=== PATIENT | female | born 1980 | race Asian ===

== ENCOUNTER 2018-03-02 07:26 | Day surgery (SDC) | payer BC, MEDICAID ==
--- NOTE | 2018-02-26 21:20 | HP ---
PREOPERATIVE HISTORY AND PHYSICAL: DATE OF SURGERY/ADMISSION: 03/02/18 [facility] ATTENDING SURGEON: Fransisca Wheeler MD * (DICTATED BY SALINA WHITE) PROCEDURE: Left wrist carpal tunnel release. CHIEF COMPLAINT: Numbness and tingling, left hand. HISTORY OF PRESENT ILLNESS: This is a 37-year-old [place] woman, who complains of numbness and tingling in her left hand that has been ongoing for over a year now. She gets symptoms at night that awaken her and she is having trouble holding on to things. She has numbness and tingling in her hand primarily in the median nerve distribution, occasionally in the small finger. She denies any injury. She often times has symptoms when she is working at [employer]. 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 She, back in August 2017, had a right carpal tunnel release and has done quite well with that. She is now interested in pursuing the same procedure for her left wrist. PAST MEDICAL HISTORY: 1. Vertigo. 2. Depression/anxiety. 3. Insomnia. 4. Lumbar disk disease. PAST SURGICAL HISTORY: 1. Right carpal tunnel release. 2. Tubal ligation. CURRENT MEDICATIONS: 1. Ambien 5 mg daily. 2. Escitalopram oxalate 20 mg daily. 3. Hydroxyzine HCl 25 mg daily. 4. Meclizine HCl 12.5 mg 1 tab 2 times a day p.r.n. dizziness. 5. MiraLAX 3350 NF mix 1 tablespoon in 8 ounces of water p.r.n. constipation. ALLERGIES: TRAZODONE, CYMBALTA and TRAMADOL, reaction unknown. BANDAGE ADHESIVES causes skin irritation. FAMILY HISTORY: Noncontributory. SOCIAL HISTORY: The patient is employed by [employer]. She denies tobacco use and recreational drug use. She drinks alcohol on very rare occasion. REVIEW OF SYSTEMS: General: Negative for fevers, chills, or night sweats, unexplained weight loss/gain. No known anesthesia problems. HEENT: Negative for headache, lightheadedness, or syncopal episodes. Negative for visual changes. Integumentary: Negative for abrasions, lesions, or open wounds. Cardiothoracic: Negative for hypertension, chest pain, palpitations, or edema. Respiratory: Negative for shortness of breath with exertion, chronic cough, or wheezing. GI: Negative for nausea, vomiting, diarrhea, constipation, or GERD. : Negative for nocturia, urinary frequency, urgency, history of UTIs, or kidney problems. Musculoskeletal: Positive for current complaint. Negative for chronic or intermittent back pain or history of fractures. Neurological: Positive for anxiety/depression. Negative for history of seizure, stroke, or poor balance. Endocrine: Negative for diabetes and thyroid issues. Hematologic : Negative for easy bruising, anemia, bleeding disorders, or history of DVT. Infectious Disease: Negative for history of MRSA, hepatitis C, or HIV. PHYSICAL EXAMINATION GENERAL: Well-developed, well-nourished 37-year-old female, in no acute distress. VITAL SIGNS: Height 5 feet 3 inches, weight 150 pounds. Pulse rate 67, blood pressure 104/66. HEENT: Normocephalic, atraumatic. Pupils are equal, round, and reactive to light and accommodation. Extraocular movements are intact. NECK: Supple. No palpable lymph nodes. Throat is clear. PULMONARY: Lungs are clear to auscultation bilaterally. No wheezes, rales, or rhonchi. CARDIOVASCULAR: Regular rate and rhythm. S1, S2. No murmurs, rubs, or gallops. No edema. ABDOMEN: Positive bowel sounds. Soft, nontender. MUSCULOSKELETAL: On exam of her left upper extremity, there is no thenar or hypothenar wasting. She has weakness with thumb abduction. Negative Tinel's sign over the median nerve at the wrist on the left. Positive Phalen's test on the left. She has good motion of her fingers and her wrist. Sensation is intact to light touch. NEUROLOGICAL: Alert and oriented x3. Cranial nerves II through XII are intact. Sensation is intact to light touch. IMPRESSION: Left carpal tunnel syndrome. PLAN: The patient is scheduled to undergo a left wrist carpal tunnel release with Dr. Wheeler on 03/02/18. She will return to the office 10 days postop for followup and suture removal. Pain medications for postoperative pain management will be prescribed on the day of surgery. SALINA WHITE [id number]/[facility] #: [id number] [facility]
[~2018-03-02 07:26] MED LIST: Buffered Lidocaine 0.9% SYRIN* 5 ML/SYR SYRINGE INTRADERM ONE
[2018-03-02] MEDS ORDERED: Propofol* 10 MG/ML 20 ML BTL IV PUSH ONE (07:45)
[2018-03-02] MEDS ORDERED: Lidocaine 2% PF * 5 ML VIAL ONE (07:45)
[2018-03-02] MEDS ORDERED: fentaNYL* 50 MCG/ML 2 ML VIAL (100 MCG VIAL) ONE (07:45)
[2018-03-02] MEDS ORDERED: Lidocaine 1% INJ* 10 MG/ML 30 ML SDV ONE (08:26)
[2018-03-02 09:09] VITALS: BP 97/67
[2018-03-02] MEDS ORDERED: Naloxone* 0.4 MG/ML 1 ML VIAL IV PRN (09:11)
--- NOTE | 2018-03-03 03:46 | OP ---
DATE OF OPERATION: 03/02/18 [facility] DATE OF : 76 SURGEON: Fransisca Wheeler MD [employer] TEACHER: SALINA Silva ANESTHESIA: Local MAC. PRE-OP DIAGNOSIS: Left carpal tunnel syndrome. POST-OP DIAGNOSIS: Left carpal tunnel syndrome. OPERATIVE PROCEDURE: Left carpal tunnel release. ESTIMATED BLOOD LOSS: Zero. TOURNIQUET TIME: About 5 minutes. INDICATIONS FOR PROCEDURE: Tamiko is a 37-year-old female with numbness and tingling in the median nerve distribution of her left hand. She presents for left carpal tunnel release. She has done well in the past with right carpal tunnel release. DESCRIPTION OF PROCEDURE: The patient was brought to the operating room, was given a sedation anesthetic and a local infiltration of 10 cc of 1% plain lidocaine in the palm of her left hand. The skin of her left hand and forearm was prepped and draped in the usual sterile fashion. The hand and forearm were exsanguinated, and the tourniquet elevated to 250 mmHg. A longitudinal incision was made in the palm in line with the ring finger, dissected through the subcutaneous tissue down to the transverse carpal ligament. The ligament was divided sharply with the knife and then more proximally with the scissors. The nerve was dissected free from the surrounding tissue and there was an area of moderate compression at the mid portion of the ligament. The wound was irrigated and the skin edges reapproximated with 4-0 nylon suture. The wound was dressed with Xeroform, 4x4, Webril, and an José Manuel wrap. The patient tolerated the procedure well and was brought to the recovery room in good condition. [id number]/[facility] #: [id number] MTDD
== END 2018-03-02 09:20 | disposition home or self-care (01) ==
LOC: OREAST 07:26
PROVIDERS: ATTEND Orthopaedic Surgery
DX: G56.02 Carpal tunnel syndrome, left upper limb (principal); F41.8 Other specified anxiety disorders; M19.90 Unspecified osteoarthritis, unspecified site
CPT/HCPCS: J2704; J3010

== ENCOUNTER 2018-08-27 11:57 | Emergency (ER) | payer BC ==
--- OUTSIDE RECORDS SUMMARY | 2018-08-27 12:09 | XMS REPORT ---
:1980 External Reference #:[id number] Author Organization [employer] Address [address] [facility] [address] [place] [address] [place] [address] Phone [phone] Care Team Providers Name Role Phone Tegan Tejada MD Primary Care Physician Unavailable Payers Type Date Identification Numbers Payment Provider Subscriber Commercial Policy Number: [id number] [employer] Tamiko Driver PayID: [id number] [address] [address] [place] [address] [facility] Part B Policy Number: [id number] Medicaid Tamiko Driver PayID: [id number] [address] [place] [address] Problems Date Description Provider Status Onset: 12/25/2012 Anxiety state Don Dhillon M.D. Active Onset: 09/10/2013 Disorder of lumbar disc Don Dhillon M.D. Active Onset: Depressive disorder Active Onset: 12/01/2015 Psychophysiologic insomnia Tegan Tejada M.D. Active Onset: 06/06/2016 Localized, primary osteoarthritis Alpa Young M.D. Active Onset: 06/06/2016 Derangement of knee Alpa Young M.D. Active Onset: 08/01/2016 Disorder of lipid metabolism Tegan Tejada M.D. Active Note: low HDL Onset: Disorder of patellofemoral joint Active Note: OA Onset: 09/06/2017 Deep pain on intercourse Tegan Tejada M.D. Active Note: chronic issue Onset: 08/22/2011 Disorder of lung Don Dhillon M.D. Resolved Resolved: 03/03/2014 Onset: 03/28/2012 Dizziness and giddiness Don Dhillon M.D. Resolved Resolved: 03/03/2014 Onset: 04/11/2012 Hodgkin's disease, nodular Don Dhillon M.D. Resolved sclerosis of lymph nodes of axilla AND/OR upper limb Resolved: 03/03/2014 Onset: 07/25/2012 Low back pain Don Dhillon M.D. Resolved Resolved: 03/03/2014 Onset: 07/25/2012 Headache Don Dhillon M.D. Resolved Resolved: 03/03/2014 Onset: 08/21/2012 Palpitations Don Dhillon M.D. Resolved Resolved: 03/03/2014 Onset: 12/25/2012 Benign paroxysmal positional Don Dhillon M.D. Resolved vertigo Resolved: 03/03/2014 Onset: 12/25/2012 Impairment level: one eye: moderate Don Dhillon M.D. Resolved impairment: other eye: near-normal vision Resolved: 03/03/2014 Onset: 06/26/2013 Mixed hyperlipidemia Don Dhillon M.D. Resolved Resolved: 03/03/2014 Onset: 06/26/2013 Disorder of back Don Dhillon M.D. Resolved Resolved: 03/03/2014 Onset: 06/26/2013 Chest pain Don Dhillon M.D. Resolved Resolved: 03/03/2014 Onset: 07/31/2013 Peripheral vertigo Don Dhillon M.D. Resolved Resolved: 03/03/2014 Onset: 07/31/2013 Female genital organ symptoms Don Dhillon M.D. Resolved Resolved: 03/03/2014 Onset: 09/10/2013 Lymphadenopathy Don Dhillon M.D. Resolved Resolved: 03/03/2014 Family History Date Family Member(s) Problem(s) Comments General Hypertension Father per pt, father had skin disease from [place], has Mother Alive And Well Mother No Current Problems Siblings 3 Social History Type Date Description Comments Marital Status Lives With Occupation Currently Working [employer] Cigarette Use Never Smoked Cigarettes ETOH Use Denies alcohol use Recreational Drug Use Denies Drug Use Smoking Patient has never smoked Daily Caffeine Does Not Consume Caffeine Daily Caffeine Consumes on average 2 cups of hot tea per day Exercise Type/Frequency Exercises regularly back stretches .some walking X 30 min periodically Allergies, Adverse Reactions, Alerts Date Description Reaction Status Severity Comments 12/12/2013 Cymbalta abdominal pain active 12/12/2013 Bandage Adhesive active 01/02/2014 Tramadol makes patient active lethargic 01/29/2014 Trazodone Eye balls were active Moderate to Severe burning 05/31/2011 NKDA inactive 09/10/2013 NKDA inactive Medications Medication Date Status Form Strength Qnty SIG Indications Ordering Provider Miralax 09/06/ Active Powder 3350NF 510un mix 1 K59.00 Tegan 2017 its tablespoon in [place], 8 oz of water M.D. as needed for constipation Wrist 02/01/ Active Misc 1unit as needed G56.01 Tegan Brace/Suede 2017 s [place], Finish/Right/Me M.D. dium Hydroxyzine HCL 10/03/ Active Tablets 25mg 30tab 1 tab by F41.9 Tegan 2016 s mouth every [place]jada, night as M.D. needed for anxiety Escitalopram 10/03/ Active Tablets 20mg 90tab take one F32.9 Tegan Oxalate 2015 s tablet by Tejada, mouth every M.D. day Ambien 10/07/ Active Tablets 5mg 30tab 1 by mouth G47.00 Tegan 2015 s every day as Tejada, needed before M.D. sleep Meclizine HCL 07/30/ Active Tablets 12.5mg 60tab 1 tab 2 times F32.9 Dex Reinoso 2015 s a day as Chantel, needed for M.D. dizziness Acetaminophen-C 08/25/ Hx Tablets 300-30mg 30tab 1-2 tabs by Maurice vance #3 2017 - s mouth every 6 Robison, 05/20/ hours as 2018 needed Meloxicam 06/06/ Hx Tablets 15mg 60tab 1 by mouth M25.562 Alpa 2016 - s every day Hector, 10/18/ (not taking) M.D. 2016 Escitalopram 01/10/ Hx Tablets 10mg 90tab 1 by mouth F32.9 Tegan Oxalate 2015 - s every day Tejada, 10/03/ M.D. 2016 Meclizine HCL 12/27/ Hx Tablets 25mg 90tab 1 by mouth 3 F32.9 Tegan 2016 - s times a day Tejada, 10/18/ as needed for M.D. 2016 dizziness Fluconazole 12/01/ Hx Tablets 150mg 2tabs 1 by mouth B37.3 Tegan 2016 - every day Tejada, 12/27/ M.D. 2016 Escitalopram 12/01/ Hx Tablets 20mg 90tab take 10/24 F32.9 Tegan Oxalate 2015 - s tablet by Terrell, 01/10/ mouth every M.D. 2016 day Fluconazole 10/29/ Hx Tablets 150mg 2tabs 1 by mouth Tegan 2016 - every day Tejada, M.D. 2016 Fluconazole 04/07/ Hx Tablets 150mg 2tabs 1 by mouth Tegan 2014 - every day Tejada, 04/27/ M.D. 2015 Escitalopram 04/06/ Hx Tablets 10mg 90tab 1 by mouth F32.9 Tegan Oxalate 2014 - s every day. . Tejada, 12/01/ M.D. 2016 Amitriptyline 04/06/ Hx Tablets 10mg 30tab 1 tablet by 724.2 Tegan HCL 2014 - mouth at Tejada, 04/27/ night only M.D. 2014 Meclizine HCL 01/26/ Hx Tablets 12.5mg 30tab 1 tab by 386.11 Elia 2014 - s mouth twice a Patel, CHARGE AUTHORIZER 07/30/ day as needed 2014 dizziness. Hydrocodone-José Manuel 01/26/ Hx Tablets 5-325mg 45tab 1-2 tabs by 724.2 Elia taminophen 2014 - s mouth q6 Patel, CHARGE AUTHORIZER 04/06/ hours as 2015 needed pain limit 6 tabs per day Zolpidem 11/26/ Hx Tablets 5mg 30tab 1 tab by 780.52 Elia Tartrate 2014 - s mouth at Patel, CHARGE AUTHORIZER 04/07/ night as 2015 needed Escitalopram 10/27/ Hx Tablets 10mg 30tab 1 by mouth 311 Elia Irwin 2014 - s every day. MARIAN Patel 04/06/ Start with 2014 1/4 tab x 5 days. Then 1/2 tab x 5 days. Then 3/4 tab x 5 days. Then whole tab. Eszopiclone 10/14/ Hx Tablets 1mg 30tab 1 tab by 780.52 Suzan 2013 - s mouth every Verenice, 10/24/ day every MD 2015 night Ondansetron HCL 10/13/ Hx Tablets 4mg 20tab Take One Aliya 2013 - Tablet By Shahid 04/06/ Mouth Every 8 M.D. 2015 Hours as Needed For For Nausea Fluconazole 09/11/ Hx Tablets 150mg 1tabs 1 tab by 616.10 Elia 2013 - mouth x1 MARIAN Patel 2014 Colace 09/11/ Hx Capsules 100mg 90cap 1 tab by 564.00 Elia 2013 - s mouth at MARIAN Patel 12/01/ bedtime 2015 Fluconazole 09/05/ Hx Tablets 150mg 1tabs 1 tab by Elia 2013 - mouth x1 MARIAN Patel 2013 Clindamycin HCL 09/04/ Hx Capsules 300mg 14cap take 1 by 616.9 Elia 2013 - s mouth two MARIAN Patel 09/05/ times a day x 2013 7 days Fluconazole 07/10/ Hx Tablets 150mg 2tabs 1 by mouth 623.5 Tegan 2013 - every day Terrell, 09/11/ M.D. 2013 Fluconazole 03/05/ Hx Tablets 150mg 2tabs 1 by mouth Tegan 2013 - every day Terrell, 07/10/ M.D. 2013 Metrogel-Vagina 03/05/ Hx Gel 0.75% 1unit apply once a Tegan l 2013 day x 7 days Terrell, 07/10/ M.D. 2013 Fluoxetine HCL 01/29/ Hx Tablets 20mg 90tab take 1 tab 311 Tegan 2013 - s daily Dr. Tejada, 10/24/ Janet Gomez 2014 Melatonin CR 01/02/ Hx Tablets 3mg 30tab once at hs 2 Tegan 2013 - ER s hrs prior to Terrell 12/01/ sleep M.Bee 2016 Lorazepam 12/30/ Hx Tablets 0.5mg 10tab 1 tablet as Tegan 2013 needed for Terrell, 09/04/ anxiety M.D. [address] Gonzales Fluoxetine HCL 12/23/ Hx Tablets 10mg 90tab once a day(Pt 311 Tegan 2013 was changed Terrell from 10 to M.D. 2013 20mg by psychiatrist. ) Ondansetron HCL 12/12/ Hx Tablets 4mg 20tab 1 tab po 780.79 Aliya 2013 Jacek s every 8 hours Shahid 01/02/ for nausea M.D. 2013 Alprazolam 12/12/ Hx Tablets 0.25mg 20tab 1 po for 311 Aliya 2013 s anxiety Shahid, 01/29/ attack M.D. 2013 Omeprazole 12/12/ Hx Capsules 20mg 30cap 1 po qd 780.79 Aliya 2013 - DR daniel Key, M.D. 2013 Duloxetine HCL 12/04/ Hx Caps DR 30mg 90cap 1 tab daily 311 Tegan 2013 Yvonne s Terrell 12/12/ M.D. 2013 Tramadol HCL 12/04/ Hx Tablets 50mg 30tab 1 po at night 722.93 Tegan 2013 s as needed for Terrell, 01/02/ pain M.D. 2013 Meloxicam 09/10/ Hx Tablets 15mg 30tab once daily as 724.9 Tegan 2012 needed for Terrell, 10/13/ back pain M.D. 2013 Meloxicam 06/26/ Hx Tablets 15mg 30tab once daily 724.9 Don 2012 s Jacquie 09/10/ , M.D. 2013 Zoloft 12/26/ Hx Tablets 50mg 30tab 1/2 tab x 2 Aliya 2012 weeks then 1 Shahid 06/26/ tab daily M.D. 2012 Zoloft 12/25/ Hx Tablets 50mg 3week 1/2 po qd tab 300.00 Don 2012 s then 2 we 1 Pachika 12/26/ tab after , M.D. 2012 Meclizine HCL 12/05/ Hx Tablets 12.5mg 90tab 1 tab every 8 780.4 Don 2012 s hrs as needed Jacquie 09/10/ for dizziness , M.D. 2013 Mobic 08/21/ Hx Tablets 15mg 30tab once daily 724.2 Don 2011 - s with food Pachikara 12/05/ Jason 2012 Sumatriptan 07/25/ Hx Tablets 100mg 10tab use at onset 784.0 Don Succinate 2011 - of head Pachikara 08/21/ ache,february , M.D. 2011 repeat after 2h prn Levaquin 07/20/ Hx Tablets 500mg 10tab 1 po qd [address] [place] 2010 - s Pachikara Jason 2010 Mobic 07/20/ Hx Tablets 15mg 30tab once daily 724.2 [place] 2010 - s Pachikara 07/25/ , ShaggyDRadha 2011 Acetaminophen / Hx 500mg 2 tabs qam Unknown - 2011 Tylenol PM / Hx Tablets 500-25mg 30tab 1 po qhs Unknown 0000 - s 2012 Multi-Day / Hx Tablets 30tab 1 po qd Unknown Vitamins 0000 - s 2016 Ibuprofen / Hx Capsules 200mg prn Unknown - 2011 Lorazepam / Hx Tablets 0.5mg 60tab take 1 tablet Unknown 0000 - s as needed for 03/23/ anxiety every 2014 8 hours Sertraline HCL / Hx Tablets 100mg 1 by mouth Unknown 0000 - every day 04/06/ last refill 2014 per pharmacy 12/30 Medications Administered in Office Medication Date Status Form Strength Qnty SIG Indications Ordering Provider Depomedrol Administered Injection Fransisca 40MG Sravan Wheeler M.D. Depomedrol Administered Injection Fransisca 40MG Sravan Wheeler M.D. Depomedrol Administered Injection Fransisca 40MG Sravan Wheeler M.D. Depomedrol Administered Injection Alpa 40MG Deedee Young M.D. Td(Adult),Uns Administered Injection Unknown pecified 011 Immunizations CPT Code Status Date Vaccine Reaction Lot # 99931 Given 08/23/2018 Influenza Virus Vaccine, No immediate reaction [id number] Quadrivalent, Split, noted. Preservative Free 13972 Given 09/06/2017 Tdap - [id number] Tetanus/Diptheria/Acellul ar Pertussis 52245 Given 09/06/2017 Influenza Virus Vaccine, [id number] Quadrivalent, Split, Preservative Free 54731 Given 08/01/2016 Influenza Virus Vaccine, [id number] Quadrivalent, Split Virus, Im Use 08954 Given 07/30/2015 Influenza Virus Vaccine, [id number] Quadrivalent, Split, Preservative Free [id number] Given 07/10/2014 Fluvirin Im 3Yrs And Older 25078 Given 07/10/2014 Influenza Virus Vaccine, Quadrivalent, Split, Preservative Free 80959 Given 07/10/2014 Flu Vaccine Split Virus [id number] Preservative Free For Indiv 3Yr Older 91854 Given 07/31/2013 Flu Vaccine Split Virus [id number] Preservative Free For Indiv 3Yr Older 53499 Given 09/27/2012 Hepatitis A Vaccine Adult Dosage 40645 Given 05/31/2012 Hepatitis B Vaccine Adult Dosage 97834 Given 05/31/2012 Hepatitis B Vaccine Adult [id number] Dosage 73534 Given 03/29/2012 Hepatitis B Vaccine Adult [id number] Dosage 39604 Given 03/29/2012 Hepatitis A Vaccine Adult [id number] Dosage 74971 Given 03/28/2012 Pneumonia Vaccine [id number] 05546 Given 03/28/2012 Measles Mumps And Rubella [id number] MMR 99543 Given 12/03/2010 Hepatitis B Vaccine Adult Dosage 77641 Given 12/03/2010 Measles Mumps And Rubella MMR Vital Signs Date Vital Result Comment 08/23/2018 Height 63 inches 5'3" Weight 143.00 lb Heart Rate 87 /min BP Systolic Sitting 100 mmHg BP Diastolic Sitting 76 mmHg Body Temperature 98.3 F O2 % BldC Oximetry 98 % BMI (Body Mass Index) 25.3 kg/m2 04/12/2018 Height 63 inches 5'3" Weight 150.00 lb Heart Rate 84 /min Respiratory Rate 16 /min Body Temperature 96.8 F Pain Level 0 BMI (Body Mass Index) 26.6 kg/m2 03/12/2018 Height 63 inches 5'3" Weight 150.00 lb Heart Rate 67 /min Respiratory Rate 15 /min Body Temperature 97.3 F Pain Level 2 BMI (Body Mass Index) 26.6 kg/m2 02/21/2018 Height 63 inches 5'3" Weight 150.00 lb Heart Rate 67 /min Respiratory Rate 16 /min Pain Level 5 BMI (Body Mass Index) 26.6 kg/m2 02/08/2018 Height 63 inches 5'3" Weight 150.12 lb Heart Rate 73 /min BP Systolic Sitting 104 mmHg BP Diastolic Sitting 66 mmHg Body Temperature 98.2 F O2 % BldC Oximetry 98 % BMI (Body Mass Index) 26.6 kg/m2 09/27/2017 Height 63 inches 5'3" Weight 150.00 lb BP Systolic 100 mmHg BP Diastolic 62 mmHg Body Temperature 98.5 F Pain Level 0 BMI (Body Mass Index) 26.6 kg/m2 09/06/2017 Weight 148.25 lb Heart Rate 75 /min BP Systolic Sitting 90 mmHg BP Diastolic Sitting 68 mmHg Body Temperature 98.2 F O2 % BldC Oximetry 98 % 09/04/2017 Height 61 inches 5'1" Weight 150.00 lb BMI (Body Mass Index) 28.3 kg/m2 08/17/2017 Height 61 inches 5'1" Weight 150.00 lb BP Systolic 110 mmHg BP Diastolic 72 mmHg Body Temperature 97.1 F Pain Level 8 BMI (Body Mass Index) 28.3 kg/m2 05/31/2017 Height 61 inches 5'1" Weight 155.00 lb BP Systolic 101 mmHg BP Diastolic 65 mmHg Body Temperature 97.6 F Pain Level 7 BMI (Body Mass Index) 29.3 kg/m2 03/08/2017 Height 61 inches 5'1" Weight 154.00 lb BP Systolic 90 mmHg BP Diastolic 60 mmHg Body Temperature 97.8 F Pain Level 0 BMI (Body Mass Index) 29.1 kg/m2 02/13/2017 Height 61 inches 5'1" Weight 154.00 lb Heart Rate 76 /min BP Systolic 94 mmHg BP Diastolic 70 mmHg Respiratory Rate 15 /min Body Temperature 97.6 F BMI (Body Mass Index) 29.1 kg/m2 02/01/2017 Weight 154.25 lb Heart Rate 76 /min BP Systolic 110 mmHg BP Diastolic 68 mmHg Body Temperature 98.1 F O2 % BldC Oximetry 98 % 11/29/2016 Weight 157.00 lb Heart Rate 81 /min BP Systolic 100 mmHg BP Diastolic 60 mmHg Body Temperature 99.0 F O2 % BldC Oximetry 98 % 10/18/2016 Weight 157.00 lb Heart Rate 74 /min BP Systolic Sitting 124 mmHg BP Diastolic Sitting 82 mmHg Respiratory Rate 15 /min Body Temperature 97.7 F O2 % BldC Oximetry 98 % 10/03/2016 Weight 154.00 lb Heart Rate 78 /min BP Systolic Sitting 98 mmHg BP Diastolic Sitting 76 mmHg Body Temperature 97.8 F O2 % BldC Oximetry 98 % 08/01/2016 Height 62.5 inches 5'2.50" Weight 154.00 lb Heart Rate 75 /min BP Systolic Sitting 118 mmHg BP Diastolic Sitting 78 mmHg Body Temperature 97.5 F O2 % BldC Oximetry 98 % BMI (Body Mass Index) 27.7 kg/m2 07/25/2016 Heart Rate 73 /min BP Systolic 93 mmHg BP Diastolic 69 mmHg Pain Level 9 06/06/2016 Height 62.5 inches 5'2.50" Weight 154.00 lb Heart Rate 60 /min BP Systolic Sitting 94 mmHg BP Diastolic Sitting 60 mmHg Respiratory Rate 16 /min Pain Level 9 BMI (Body Mass Index) 27.7 kg/m2 05/16/2016 Height 62.5 inches 5'2.50" Weight 152.50 lb Heart Rate 97 /min BP Systolic 90 mmHg BP Diastolic 70 mmHg Body Temperature 97.1 F O2 % BldC Oximetry 99 % BMI (Body Mass Index) 27.4 kg/m2 01/11/2016 Height 62.5 inches 5'2.50" Weight 154.00 lb Heart Rate 78 /min BP Systolic 98 mmHg BP Diastolic 70 mmHg Body Temperature 97.6 F O2 % BldC Oximetry 99 % BMI (Body Mass Index) 27.7 kg/m2 12/28/2015 Height 62.5 inches 5'2.50" Weight 152.00 lb Heart Rate 77 /min BP Systolic 100 mmHg BP Diastolic 72 mmHg Body Temperature 98.3 F O2 % BldC Oximetry 100 % BMI (Body Mass Index) 27.4 kg/m2 12/01/2015 Height 62.5 inches 5'2.50" Weight 151.75 lb Heart Rate 87 /min BP Systolic Sitting 90 mmHg BP Diastolic Sitting 60 mmHg Body Temperature 98.4 F O2 % BldC Oximetry 98 % BMI (Body Mass Index) 27.3 kg/m2 10/28/2015 Weight 149.50 lb Heart Rate 106 /min BP Systolic Sitting 102 mmHg BP Diastolic Sitting 60 mmHg Body Temperature 97.4 F O2 % BldC Oximetry 98 % 10/07/2015 Weight 149.00 lb Heart Rate 82 /min BP Systolic Sitting 122 mmHg BP Diastolic Sitting 74 mmHg Respiratory Rate 15 /min Body Temperature 98.4 F O2 % BldC Oximetry 98 % 07/30/2015 Weight 149.00 lb Heart Rate 84 /min BP Systolic Sitting 94 mmHg BP Diastolic Sitting 62 mmHg Body Temperature 97.5 F 04/30/2015 Height 63 inches 5'3" Weight 148.00 lb Heart Rate 74 /min BP Systolic Sitting 100 mmHg BP Diastolic Sitting 60 mmHg Respiratory Rate 14 /min O2 % BldC Oximetry 98 % BMI (Body Mass Index) 26.2 kg/m2 04/29/2015 Weight 147.00 lb Heart Rate 80 /min BP Systolic Sitting 101 mmHg BP Diastolic Sitting 62 mmHg Body Temperature 98.6 F 04/27/2015 Height 63 inches 5'3" Weight 145.00 lb Heart Rate 80 /min BP Systolic Sitting 92 mmHg BP Diastolic Sitting 64 mmHg Body Temperature 98.9 F O2 % BldC Oximetry 99 % BMI (Body Mass Index) 25.7 kg/m2 04/06/2015 Weight 146.50 lb Heart Rate 77 /min BP Systolic Sitting 103 mmHg BP Diastolic Sitting 75 mmHg Body Temperature 97.8 F 01/26/2015 Weight 151.00 lb Heart Rate 87 /min BP Systolic Sitting 90 mmHg BP Diastolic Sitting 70 mmHg Body Temperature 97.5 F O2 % BldC Oximetry 98 % 11/26/2014 Weight 148.50 lb Heart Rate 91 /min BP Systolic Sitting 104 mmHg BP Diastolic Sitting 70 mmHg Body Temperature 97.8 F O2 % BldC Oximetry 99 % 10/27/2014 Weight 148.75 lb Heart Rate 87 /min BP Systolic Sitting 97 mmHg BP Diastolic Sitting 65 mmHg Body Temperature 98.0 F O2 % BldC Oximetry 99 % 10/14/2014 Height 63 inches 5'3" Weight 148.00 lb Heart Rate 88 /min BP Systolic Sitting 82 mmHg BP Diastolic Sitting 56 mmHg Body Temperature 98.4 F BMI (Body Mass Index) 26.2 kg/m2 10/14/2014 Height 63 inches 5'3" Weight 146.50 lb Heart Rate 75 /min BP Systolic Sitting 122 mmHg BP Diastolic Sitting 60 mmHg Respiratory Rate 16 /min Body Temperature 97.6 F O2 % BldC Oximetry 99 % BMI (Body Mass Index) 25.9 kg/m2 Neck Circumference in inches 15 09/11/2014 Weight 147.00 lb Heart Rate 84 /min BP Systolic Sitting 84 mmHg BP Diastolic Sitting 62 mmHg Body Temperature 96.7 F 09/04/2014 Weight 147.50 lb Heart Rate 84 /min BP Systolic Sitting 90 mmHg BP Diastolic Sitting 66 mmHg Body Temperature 98.6 F 07/10/2014 Weight 143.00 lb Heart Rate 80 /min BP Systolic Sitting 110 mmHg BP Diastolic Sitting 64 mmHg Body Temperature 98.7 F 03/03/2014 Height 62 inches 5'2" Weight 136.00 lb Heart Rate 82 /min BP Systolic Sitting 110 mmHg BP Diastolic Sitting 62 mmHg BMI (Body Mass Index) 24.9 kg/m2 01/29/2014 Height 62 inches 5'2" Weight 136.00 lb Heart Rate 64 /min BP Systolic Sitting 106 mmHg BP Diastolic Sitting 76 mmHg Body Temperature 98.6 F BMI (Body Mass Index) 24.9 kg/m2 01/02/2014 Height 62 inches 5'2" Weight 133.00 lb Heart Rate 72 /min BP Systolic Sitting 98 mmHg BP Diastolic Sitting 64 mmHg Body Temperature 98.2 F BMI (Body Mass Index) 24.3 kg/m2 12/23/2013 Weight 140.00 lb Heart Rate 83 /min BP Systolic Sitting 102 mmHg BP Diastolic Sitting 76 mmHg Body Temperature 97.9 F 12/12/2013 Weight 135.00 lb Heart Rate 123 /min BP Systolic Sitting 96 mmHg BP Diastolic Sitting 72 mmHg Body Temperature 98.8 F O2 % BldC Oximetry 98 % 12/04/2013 Weight 142.00 lb Heart Rate 78 /min BP Systolic Sitting 105 mmHg BP Diastolic Sitting 68 mmHg 11/07/2013 Weight 142.00 lb Heart Rate 80 /min BP Systolic Sitting 100 mmHg BP Diastolic Sitting 70 mmHg 09/10/2013 Height 62 inches 5'2" Weight 140.00 lb Heart Rate 78 /min BP Systolic Sitting 102 mmHg BP Diastolic Sitting 64 mmHg BMI (Body Mass Index) 25.6 kg/m2 07/31/2013 Height 62 inches 5'2" Weight 141.00 lb Heart Rate 76 /min BP Systolic Sitting 92 mmHg BP Diastolic Sitting 68 mmHg BMI (Body Mass Index) 25.8 kg/m2 06/26/2013 Height 62 inches 5'2" Weight 136.00 lb Heart Rate 75 /min BP Systolic Sitting 98 mmHg BP Diastolic Sitting 71 mmHg Body Temperature 97.5 F BMI (Body Mass Index) 24.9 kg/m2 01/15/2013 Height 62 inches 5'2" Weight 132.00 lb Heart Rate 68 /min BP Systolic 90 mmHg BP Diastolic 70 mmHg BMI (Body Mass Index) 24.1 kg/m2 12/25/2012 Height 62 inches 5'2" Weight 128.00 lb Heart Rate 60 /min BP Systolic Sitting 94 mmHg BP Diastolic Sitting 70 mmHg BMI (Body Mass Index) 23.4 kg/m2 12/05/2012 Height 62 inches 5'2" Weight 129.25 lb Heart Rate 78 /min BP Systolic 107 mmHg BP Diastolic 82 mmHg BP Systolic Sitting 82 mmHg 1st time BP Diastolic Sitting 56 mmHg 1st time BP Systolic Standing 106 mmHg BP Diastolic Standing 75 mmHg BP Systolic Lying Down 103 mmHg BP Diastolic Lying Down 73 mmHg BMI (Body Mass Index) 23.6 kg/m2 08/21/2012 Height 62 inches 5'2" Weight 133.00 lb Heart Rate 76 /min BP Systolic Sitting 98 mmHg BP Diastolic Sitting 64 mmHg BMI (Body Mass Index) 24.3 kg/m2 07/25/2012 Height 62 inches 5'2" Weight 128.00 lb Heart Rate 80 /min BP Systolic Sitting 98 mmHg BP Diastolic Sitting 70 mmHg BMI (Body Mass Index) 23.4 kg/m2 04/11/2012 Height 62 inches 5'2" Weight 129.00 lb Heart Rate 68 /min BP Systolic Sitting 98 mmHg BP Diastolic Sitting 60 mmHg BMI (Body Mass Index) 23.6 kg/m2 03/28/2012 Height 62 inches 5'2" Weight 130.00 lb Heart Rate 56 /min BP Systolic Sitting 94 mmHg BP Diastolic Sitting 72 mmHg BMI (Body Mass Index) 23.8 kg/m2 08/22/2011 Height 62 inches 5'2" Weight 131.00 lb Heart Rate 64 /min BP Systolic Sitting 102 mmHg l BP Diastolic Sitting 60 mmHg l Body Temperature 99.5 F BMI (Body Mass Index) 24.0 kg/m2 07/20/2011 Height 62 inches 5'2" Weight 128.00 lb Heart Rate 72 /min BP Systolic Sitting 110 mmHg BP Diastolic Sitting 75 mmHg BMI (Body Mass Index) 23.4 kg/m2 05/31/2011 Weight 123.00 lb Heart Rate 78 /min BP Systolic Sitting 96 mmHg BP Diastolic Sitting 80 mmHg Results Test Date Test Result H/L Range Note Laboratory test 08/23/2018 (HCG) <pending> finding Urine Laboratory test 10/03/2016 TSH (Thyroid Stim 1.58 mcIU/mL 0.34-5.60 finding Horm) Potassium 4.2 mmol/L 3.5-5.0 CBC Auto Diff 09/16/2016 White Blood Count 8.6 10^3/uL 3.5-10.8 Red Blood Count 4.93 10^6/uL 4.0-5.4 Hemoglobin 13.1 g/dL 12.0-16.0 Hematocrit 39 % 35-47 Mean Corpuscular Volume 79 fL Low 80-97 Mean Corpuscular Hemoglobin 27 pg 27-31 Mean Corpuscular HGB Conc 34 g/dL 31-36 Red Cell Distribution Width 14 % 10.5-15 Platelet Count 196 10^3/uL 150-450 Mean Platelet Volume 9 um3 7.4-10.4 Abs Neutrophils 4.8 10^3/uL 1.5-7.7 Abs Lymphocytes 2.8 10^3/uL 1.0-4.8 Abs Monocytes 0.7 10^3/uL 0-0.8 Abs Eosinophils 0.1 10^3/uL 0-0.6 Abs Basophils 0.1 10^3/uL 0-0.2 Abs Nucleated RBC 0.02 10^3/uL Granulocyte % 56.3 % 38-83 Lymphocyte % 33.1 % 25-47 Monocyte % 7.9 % 1-9 Eosinophil % 1.7 % 0-6 Basophil % 1.0 % 0-2 Nucleated Red Blood Cells % 0.2 Comp Metabolic Panel 09/16/2016 Sodium 136 mmol/L 133-145 Potassium 3.2 mmol/L Low 3.5-5.0 Chloride 103 mmol/L 101-111 Co2 Carbon Dioxide 21 mmol/L Low 22-32 Anion Gap 12 mmol/L High 2-11 Glucose 113 mg/dL High 70-100 Blood Urea Nitrogen 11 mg/dL 6-24 Creatinine 0.76 mg/dL 0.51-0.95 BUN/Creatinine Ratio 14.5 8-20 Calcium 9.6 mg/dL 8.6-10.3 Total Protein 7.6 g/dL 6.4-8.9 Albumin 4.2 g/dL 3.2-5.2 Globulin 3.4 g/dL 2-4 Albumin/Globulin Ratio 1.2 1-3 Total Bilirubin 1.00 mg/dL 0.2-1.0 Alkaline Phosphatase 53 U/L 34-104 Alt 17 U/L 7-52 Ast 19 U/L 13-39 Egfr Non- 85.2 >60 Egfr 109.5 >60 1 Laboratory test finding 09/16/2016 Magnesium 1.8 mg/dL Low 1.9-2.7 Lipase 26 U/L 11.0-82.0 C Reactive Protein 2.25 mg/L < 5.00 2 HCG < 0.60 mIU/mL 3 Laboratory test finding 08/01/2016 Cytology SEE RESULT BELOW 4 HPV Rna Ww/Reflex Genotype Negative Negative 5 Lipid Profile (Trig/Chol/HDL) 07/26/2016 Triglycerides 179 mg/dL 6 Cholesterol 168 mg/dL 7 HDL Cholesterol 43.8 mg/dL 8 LDL Cholesterol 88 mg/dL 9 Laboratory test 07/26/2016 Glucose 83 mg/dL 70-100 10 finding Laboratory test 10/28/2015 [place]/Yeast: SEE RESULT BELOW 11 finding Vaginal Dna GC/Chlamydia 10/28/2015 Chlamydia trachomatis Negative Negative Amplified Rna Rna Neisseria gonorrhoeae (GC) Rna Negative Negative Laboratory test 10/28/2015 Trichomonas Vaginalis Negative Negative 12 finding Rna Laboratory test 10/07/2015 Test Urine negative finding Laboratory test 04/06/2015 [place]/Yeast: SEE RESULT BELOW 13 finding Vaginal Dna Ua Routine 04/06/2015 Ua Specific [place] 1.010 Ua PH 5 Ua Color yellow Ua Appera cloudy Ua WBC moderate Ua Protein negative Ua Glucose negative Ua Ketones negative Ua Bilirubin negative Ua Urobilinogen normal Ua Nitrite negative Ua Occult Blood NHT Cortisol Free 24HR Urine 11/03/2014 Urine Free Cortisol 10 mcg/24h 3.5- 45 Urine Collection Duration 24 h Urine Total Volume 1600 mL 14 Laboratory test finding 11/03/2014 Acth 34 pg/mL 15 Vitamin D 1,25 And Vitamin 11/03/2014 Vitamin D 1,25-Dihydroxy 39 pg/mL 18-78 16 D,2 Vitamin D, 25 Hydroxy 11/03/2014 25-Hydroxy Vitamin D2 <4.0 ng/mL 25-Hydroxy Vitamin D3 31 ng/mL 25-Hydroxy Vitamin D Total 31 ng/mL 17 Laboratory test finding 10/15/2014 Hemoglobin A1c 4.5 % Less than 6.0 18 Comp Metabolic Panel 10/15/2014 Sodium 136 mmol/L 133-145 Potassium 3.9 mmol/L 3.5-5.0 Chloride 105 mmol/L 101-111 Co2 Carbon Dioxide 25 mmol/L 22-32 Anion Gap 6 mmol/L 2-11 Glucose 86 mg/dL 70-100 Blood Urea Nitrogen 10 mg/dL 6-24 Creatinine 0.58 mg/dL 0.51-0.95 BUN/Creatinine Ratio 17.2 8-20 Calcium 9.4 mg/dL 8.6-10.3 Total Protein 7.0 g/dL 6.4-8.9 Albumin 4.3 g/dL 3.2-5.2 Globulin 2.7 g/dL 2-4 Albumin/Globulin Ratio 1.6 1-3 Total Bilirubin 1.00 mg/dL 0.2-1.0 Alkaline Phosphatase 50 U/L 34-104 Alt 18 U/L 7-52 Ast 20 U/L 13-39 Egfr Non- 117.6 >60 Egfr 151.3 >60 19 Laboratory test finding 10/15/2014 Magnesium 1.8 mg/dL Low 1.9-2.7 Laboratory test finding 09/04/2014 Gardnerella/Yeast: (SEE NOTE) 20 Vaginal Dna CBC Auto Diff 07/14/2014 White Blood Count 5.4 10^3/uL 4.8-10.8 21 Red Blood Count 4.45 10^6/uL 4.0-5.4 21 Hemoglobin 13.2 g/dL 12.0-16.0 21 Hematocrit 38 % 35-47 21 Mean Corpuscular Volume 85 fL 80-97 21 Mean Corpuscular Hemoglobin 30 pg 27-31 21 Mean Corpuscular HGB Conc 35 g/dL 31-36 21 Red Cell Distribution Width 13 % 10.5-15 21 Platelet Count 173 10^3/uL 150-450 21 Mean Platelet Volume 9 um3 7.4-10.4 21 Abs Neutrophils 3.3 10^3/uL 1.5-7.7 21 Abs Lymphocytes 1.5 10^3/uL 1.0-4.8 21 Abs Monocytes 0.4 10^3/uL 0-0.8 21 Abs Eosinophils 0.2 10^3/uL 0-0.6 21 Abs Basophils 0 10^3/uL 0-0.2 21 Abs Nucleated RBC 0 10^3/uL 21 Granulocyte % 61.6 % 38-83 21 Lymphocyte % 27.5 % 25-47 21 Monocyte % 6.6 % 1-9 21 Eosinophil % 3.6 % 0-6 21 Basophil % 0.7 % 0-2 21 Nucleated Red Blood Cells % 0.1 21 Laboratory test 07/14/2014 TSH (Thyroid 1.69 IU/mL 0.34-5.60 21, 22 finding Stimulating Horm) Glucose 80 mg/dL 70-100 21, 23 Laboratory test finding 07/10/2014 Affirm Vaginal Dna Probe (SEE NOTE) 24 HPV High Risk 03/03/2014 Human Papillomavirus Source See Comment 25 HPV High Risk Type 16, PCR Negative Negative HPV High Risk Type 18, PCR Negative Negative HPV Other Risk types Negative Negative 26 GC/Chlamydia Amplified Rna 03/03/2014 GC/Chlamydia Rna (SEE NOTE) 27 Laboratory test finding 03/03/2014 Cytology RUN DATE: 03/04/ <SEE 28 NOTE> Affirm Vaginal Dna Probe (SEE NOTE) 29 Comp Metabolic Panel 12/28/2013 Sodium 137 mmol/L 133-145 Potassium 3.7 mmol/L 3.7-5.6 Chloride 106 mmol/L 101-111 Co2 Carbon Dioxide 20 mmol/L Low 22-32 Anion Gap 11 mmol/L 2-11 Glucose 109 mg/dL High 70-100 Blood Urea Nitrogen 11 mg/dL 6-24 Creatinine 0.66 mg/dL 0.51-0.95 BUN/Creatinine Ratio 16.7 8-20 Calcium 9.8 mg/dL 8.6-10.3 Total Protein 7.5 g/dL 6.4-8.9 Albumin 4.6 g/dL 3.2-5.2 Globulin 2.9 g/dL 2-4 Albumin/Globulin Ratio 1.6 1-3 Total Bilirubin 1.20 mg/dL High 0.2-1.0 Alkaline Phosphatase 58 U/L 34-104 Alt 16 U/L 7-52 Ast 18 U/L 13-39 Egfr Non- 101.9 >60 Egfr 131.1 >60 30 CKMB 12/28/2013 CKMB ng/mL 0.7 ng/mL 0.6-6.3 Laboratory test finding 12/28/2013 Troponin I 0.00 ng/mL <0.03 31 TSH (Thyroid Stimulating Horm) 1.50 IU/mL 0.34-5.60 Acetaminophen < 15 g/mL 32 Salicylate < 2.50 mg/dL <30 Laboratory test 12/28/2013 D Dimer Quantitative < 200 ng/mL Less Than 230 33 finding Inr/Protime 12/28/2013 Inr 0.96 0.85-1.06 CBC Auto Diff 12/28/2013 White Blood Count 7.8 10^3/uL 4.8-10.8 Red Blood Count 4.52 10^6/uL 4.0-5.4 Hemoglobin 12.9 g/dL 12.0-16.0 Hematocrit 38 % 35-47 Mean Corpuscular Volume 83 fL 80-97 Mean Corpuscular Hemoglobin 29 pg 27-31 Mean Corpuscular HGB Conc 35 g/dL 31-36 Red Cell Distribution Width 13 % 10.5-15 Platelet Count 180 10^3/uL 150-450 Mean Platelet Volume 10 um3 7.4-10.4 Abs Neutrophils 6.6 10^3/uL 1.5-7.7 Abs Lymphocytes 0.8 10^3/uL Low 1.0-4.8 Abs Monocytes 0.3 10^3/uL 0-0.8 Abs Eosinophils 0 10^3/uL 0-0.6 Abs Basophils 0 10^3/uL 0-0.2 Abs Nucleated RBC 0 10^3/uL Granulocyte % 84.4 % High 38-83 Lymphocyte % 10.8 % Low 25-47 Monocyte % 4.0 % 1-9 Eosinophil % 0.4 % 0-6 Basophil % 0.4 % 0-2 Nucleated Red Blood Cells % 0.1 Laboratory test finding 12/12/2013 Potassium 3.9 mmol/L 3.7-5.6 Magnesium 2.0 mg/dL 1.9-2.7 Laboratory test 12/11/2013 Serum Negative Negative 34 finding Urine Drug SCR ED & 12/11/2013 Amphetamine Ur Screen None Detected None Detect Pain Clinic Barbiturates Urine Screen None Detected None Detect Benzodiazepine Urine Screen None Detected None Detect Urine Cannabinoids Screen None Detected None Detect Urine Cocaine Screen None Detected None Detect Urine Opiates Screen None Detected None Detect Urine Phencyclidine Screen None Detected None Detect 35 Urinalysis 12/11/2013 Urine Color Yellow Urine Appearance Clear Urine Specific [place] 1.004 Low 1.010-1.030 Urine Esterase Negative Negative Urine Nitrate Negative Negative Urine Urobilinogen Negative E.U./dL Negative Urine Protein Negative mg/dL Negative Urine pH 7.5 5-9 Urine Blood Negative Negative Urine Ketones Negative mg/dL Negative Urine Bilirubin Negative Negative Urine Glucose Negative mg/dL Negative CBC Auto Diff 12/11/2013 White Blood Count 8.2 10^3/uL 4.8-10.8 Red Blood Count 4.92 10^6/uL 4.0-5.4 Hemoglobin 13.8 g/dL 12.0-16.0 Hematocrit 40 % 35-47 Mean Corpuscular Volume 82 fL 80-97 Mean Corpuscular Hemoglobin 28 pg 27-31 Mean Corpuscular HGB Conc 34 g/dL 31-36 Red Cell Distribution Width 13 % 10.5-15 Platelet Count 200 10^3/uL 150-450 Mean Platelet Volume 10 um3 7.4-10.4 Abs Neutrophils 5.4 10^3/uL 1.5-7.7 Abs Lymphocytes 2.2 10^3/uL 1.0-4.8 Abs Monocytes 0.5 10^3/uL 0-0.8 Abs Eosinophils 0.1 10^3/uL 0-0.6 Abs Basophils 0.1 10^3/uL 0-0.2 Abs Nucleated RBC 0.01 10^3/uL Granulocyte % 65.3 % 38-83 Lymphocyte % 26.3 % 25-47 Monocyte % 6.0 % 1-9 Eosinophil % 1.5 % 0-6 Basophil % 0.9 % 0-2 Nucleated Red Blood Cells % 0.1 Inr/Protime 12/11/2013 Inr 0.90 0.85-1.06 Laboratory test finding 12/11/2013 Activated Partial 31.4 seconds 24.0- 36.1 Thrombo Time D Dimer Quantitative < 200 ng/mL Less Than 230 36 Acetaminophen < 15 g/mL 37 Alcohol < 10 mg/dL <10 Comp Metabolic Panel 12/11/2013 Sodium 134 mmol/L 133-145 Potassium 3.3 mmol/L Low 3.7-5.6 Chloride 106 mmol/L 101-111 Co2 Carbon Dioxide 16 mmol/L Low 22-32 Anion Gap 12 mmol/L High 2-11 Glucose 98 mg/dL 70-100 Blood Urea Nitrogen 16 mg/dL 6-24 Creatinine 0.69 mg/dL 0.51-0.95 BUN/Creatinine Ratio 23.2 High 8-20 Calcium 9.9 mg/dL 8.6-10.3 Total Protein 7.5 g/dL 6.4-8.9 Albumin 4.6 g/dL 3.2-5.2 Globulin 2.9 g/dL 2-4 Albumin/Globulin Ratio 1.6 1-3 Total Bilirubin 0.90 mg/dL 0.2-1.0 Alkaline Phosphatase 54 U/L 34-104 Alt 14 U/L 7-52 Ast 19 U/L 13-39 Egfr Non- 96.8 >60 Egfr 124.5 >60 38 Laboratory test finding 12/11/2013 Magnesium 1.7 mg/dL Low 1.9-2.7 Lipase 44 U/L 11.0-82.0 Troponin I < 0.01 ng/mL <0.03 39 TSH (Thyroid Stimulating Horm) 4.25 IU/mL 0.34-5.60 C Reactive Protein < 1.00 mg/L 40 HIV 1 2 AB Self Referred Nonreactive Nonreactive 41 Lyme Disease Serology Negative Negative 42 CBC Auto Diff 12/08/2013 White Blood Count 6.8 10^3/uL 4.8-10.8 Red Blood Count 4.87 10^6/uL 4.0-5.4 Hemoglobin 13.5 g/dL 12.0-16.0 Hematocrit 40 % 35-47 Mean Corpuscular Volume 82 fL 80-97 Mean Corpuscular Hemoglobin 28 pg 27-31 Mean Corpuscular HGB Conc 34 g/dL 31-36 Red Cell Distribution Width 13 % 10.5-15 Platelet Count 204 10^3/uL 150-450 Mean Platelet Volume 9 um3 7.4-10.4 Abs Neutrophils 3.9 10^3/uL 1.5-7.7 Abs Lymphocytes 2.1 10^3/uL 1.0-4.8 Abs Monocytes 0.5 10^3/uL 0-0.8 Abs Eosinophils 0.2 10^3/uL 0-0.6 Abs Basophils 0 10^3/uL 0-0.2 Abs Nucleated RBC 0.01 10^3/uL Granulocyte % 57.8 % 38-83 Lymphocyte % 30.9 % 25-47 Monocyte % 7.9 % 1-9 Eosinophil % 2.7 % 0-6 Basophil % 0.7 % 0-2 Nucleated Red Blood Cells % 0.1 Comp Metabolic Panel 12/08/2013 Sodium 134 mmol/L 133-145 Potassium 3.4 mmol/L Low 3.7-5.6 Chloride 103 mmol/L 101-111 Co2 Carbon Dioxide 19 mmol/L Low 22-32 Anion Gap 12 mmol/L High 2-11 Glucose 103 mg/dL High 70-100 Blood Urea Nitrogen 14 mg/dL 6-24 Creatinine 0.78 mg/dL 0.51-0.95 BUN/Creatinine Ratio 17.9 8-20 Calcium 9.9 mg/dL 8.6-10.3 Total Protein 7.5 g/dL 6.4-8.9 Albumin 4.5 g/dL 3.2-5.2 Globulin 3.0 g/dL 2-4 Albumin/Globulin Ratio 1.5 1-3 Total Bilirubin 1.00 mg/dL 0.2-1.0 Alkaline Phosphatase 56 U/L 34-104 Alt 13 U/L 7-52 Ast 17 U/L 13-39 Egfr Non- 84.0 >60 Egfr 108.1 >60 43 Laboratory test finding 12/08/2013 Creatine Kinase 50 U/L 10-223 Troponin I < 0.01 ng/mL <0.03 44 Inr/Protime 12/08/2013 Inr 0.96 0.85-1.06 Laboratory test 12/08/2013 D Dimer Quantitative < 200 ng/mL Less Than 230 45 finding Comp Metabolic Panel 11/12/2013 Sodium 137 mmol/L 133-145 Potassium 4.0 mmol/L 3.5-5.0 Chloride 105 mmol/L 101-111 Co2 Carbon Dioxide 26.0 mmol/L 22-32 Anion Gap 6.0 mmol/L 2-11 Glucose 82 mg/dL 70-100 Blood Urea Nitrogen 8 mg/dL 6-24 Creatinine 0.50 mg/dL 0.50-1.40 BUN/Creatinine Ratio 16.0 8-20 Calcium 9.5 mg/dL 8.1-9.9 Total Protein 6.8 g/dL 6.2-8.1 Albumin 4.2 g/dL 3.6-5.4 Globulin 2.6 g/dL 2-4 Albumin/Globulin Ratio 1.6 1-3 Total Bilirubin 1.4 mg/dL 0.4-1.5 Alkaline Phosphatase 50 U/L 30-110 Alt 19 U/L 14-54 Ast 22 U/L 12-42 Egfr Non- 140.4 >60 Egfr 180.6 >60 46 Laboratory test finding 11/12/2013 TSH (Thyroid Stimulating 1.25 miu/mL 0.34-5.60 47 Horm) Vitamin B12 649 pg/mL 180-914 48 Urinalysis W/Microscopic 11/12/2013 Urine Color Yellow Urine Appearance Clear Urine Specific [place] 1.006 Low 1.010-1.030 Urine Esterase Negative Negative Urine Nitrate Negative Negative Urine Urobilinogen Negative E.U./dL Negative Urine Protein Negative mg/dL Negative Urine pH 7.0 5-9 Urine Blood Negative Negative Urine Ketones Negative mg/dL Negative Urine Bilirubin Negative Negative Urine Glucose Negative mg/dL Negative Urine WBC 1+ (<10 /hpf) None Seen Urine RBC 1+ (<3 /hpf) None Seen Urine Epithelial Cells 1+ Squamous /hpf None Seen Bacteria Urine None Seen None Seen Lipid Profile (Trig/Chol/HDL) 11/12/2013 Triglycerides 79 mg/dL 40-200 Cholesterol 171 mg/dL Less than 200 HDL Cholesterol 56 mg/dL 40-60 49 Cholesterol/HDL Ratio 3.1 Average 1-4.44 LDL Cholesterol 99.2 Less Than 100 50 CBC Auto Diff 11/12/2013 White Blood Count 5.3 10^3/uL 4.8-10.8 Red Blood Count 4.36 10^6/uL 4.0-5.4 Hemoglobin 12.3 g/dL 12.0-16.0 Hematocrit 36 % 35-47 Mean Corpuscular Volume 83 fL 80-97 Mean Corpuscular Hemoglobin 28 pg 27-31 Mean Corpuscular HGB Conc 34 g/dL 31-36 Red Cell Distribution Width 14 % 10.5-15 Platelet Count 168 10^3/uL 150-450 Mean Platelet Volume 10 um3 7.4-10.4 Abs Neutrophils 3.0 10^3/uL 1.5-7.7 Abs Lymphocytes 1.7 10^3/uL 1.0-4.8 Abs Monocytes 0.4 10^3/uL 0-0.8 Abs Eosinophils 0.2 10^3/uL 0-0.6 Abs Basophils 0.1 10^3/uL 0-0.2 Abs Nucleated RBC 0 10^3/uL Neutrophil % 65 % 38-83 Lymphocytes % 25 % 25-47 Monocytes % 9 % 0-13 Basophil % 1 % 0-2 RBC Morphology Normal Normal Surgical Pathology 04/30/2012 Surgical <SEE 51 Pathology NOTE> Vad 07/20/2011 Vad Final NONREACTIVE Nonreactive 52 Laboratory test 06/01/2011 TSH 1.36 MIU/ML 0.34-5.60 finding Comp Metabolic 06/01/2011 Sodium 136 mmol/L 135-145 Panel Potassium 3.9 mmol/L 3.5-5.0 Chloride 103 mmol/L 101-111 Co2 (Carbon Dioxide) 26.0 mmol/L 22-32 Anion Gap 7.0 mmol/L 2-11 53 Glucose 80 mg/dL 70-100 BUN 11 mg/dL 6-24 Creatinine 0.60 mg/dL 0.50-1.40 One Over Creatinine 1.60 BUN/Creatinine Ratio 18.3 8-20 Calcium 9.1 mg/dL 8.1-9.9 Total Protein 7.4 GM/DL 6.2-8.1 Albumin 4.4 GM/DL 3.6-5.4 Globulin 3.0 GM/DL 2-4 Albumin/Globulin Ratio 1.5 1-3 Bilirubin Total 1.3 mg/dL 0.4-1.5 54 Alkaline Phosphatase 46 U/L 30-110 Alt (SGPT) 17 U/L 14-54 Ast (Sgot) 19 U/L 12-42 eGFR Non- 115.9 > 60 eGFR 149.0 > 60 55 CBC Auto Diff 06/01/2011 White Blood Count 6.5 CUMM 4.8-10.8 Red Cell Count 4.42 CUMM 4.2-5.4 Hemoglobin 13.1 g/dL 12.0-16.0 Hematocrit 38 % 35-47 Mean Corpuscular Volume 85 um3 79-97 Mean Corpuscular Hemoglob 30 pg 27-31 Mean Corpuscular HGB Cone 35 g/dL 32-36 Redcell Distribution WDTH 14 % 10.5-15 Platelet Count 177 CUMM 150-450 Mean Platelet Volume 9.6 um3 7.4-10.4 Gran % 58.3 % 38-83 Lymph % 30.8 % 25-47 Mononuclear % 6.9 % 1-9 Eosinophil % 3.4 % 0-6 Basophil % 0.6 % 0-2 Abs Lymphs 2.0 1.0-4.8 Abs Mononuclear 0.5 0-0.8 Absolute Neutrophil Count 3.8 1.5-7.7 Abs Eosinophils 0.2 0-0.6 Abs Basophils 0 0-0.2 Urinalysis W/Microscopic 06/01/2011 Ua Color YELLOW Yellow Appearance-Urine CLEAR Clear Specific [place]-Ur 1.007 Low 1.010-1.030 Esterase-Urine NEGATIVE Negative Nitrite NEGATIVE Negative Iofbudwsnokz-Uk-COY NEGATIVE Negative Protein-Urine NEGATIVE Negative PH-Urine 7.0 5-9 Blood-Urine NEGATIVE Negative Ketones-Urine NEGATIVE Negative Bilirubin-Ur NEGATIVE Negative Glucose-Urine NEGATIVE Negative WBC-Urine 0-2 0-5 RBC-Urine 0-2 0-2 Epith Cells-Ur FEW None Lipid Profile (Trig/Chol/HDL) 06/01/2011 Triglyceride 93 mg/dL 40-200 Cholesterol 177 mg/dL Less Than 200 56 High Density Lipoprotein 49 mg/dL 40-60 57 Cholesterol/HDL Ratio 3.61 AVERAGE 1-4.44 Low Density Lipoprotein 109 mg/dL High Less Than 100 58 1 Because ethnic data is not always readily available, this report includes an eGFR for both -Americans and non- Americans. The National Kidney Disease Education Program (NKDEP) does not endorse the use of the MDRD equation for patients that are not between the ages of 18 and 70, are , have extremes of body size, muscle mass, or nutritional status, or are non- or non-. According to the National Kidney Foundation, irrespective of diagnosis, the stage of the disease is based on the level of kidney function: Stage Description GFR(mL/min/1.73 m(2)) 1 Kidney damage with normal or decreased GFR 90 2 Kidney damage with mild decrease in GFR 60-89 3 Moderate decrease in GFR 30-59 4 Severe decrease in GFR 15-29 5 Kidney failure <15 (or dialysis) 2 Acute inflammation: >10.00 3 <5.0 Negative 5.0 - 25.0 Indeterminate (Repeat testing recommended after 72 hours) >25.0 Positive Perimenopausal women can display HCG levels of up to 20 mIU/mL 4 SEE RESULT BELOW Name: TAMIKO DRIVER : [address]: Tegan Tejada MD Acct: [id number] Unit: [id number] AGE: 36 Location: [facility] Re08/01/16 SEX: F Status: REG REF SPEC: [id number] SANDRA: 08/01/[address]: Tegan Tejada MD REQ: [id number] RECD: 08/01/16 STATUS: SOUT _ ORDERED: IMAGE ANALYSIS, HPV/Thin Prep, HPV 16/18 GENE COMMENTS: [id number] FINAL DIAGNOSIS Negative for Intraepithelial lesion or Malignancy A. Ectocervical/Endocervical Specimen Adequacy: Satisfactory of evaluation Transformation zone component identified Patient Information: HPV: High risk HPV RNA testing regardless of pap results. HPV 16/18 Genotype Reflex Actual Specimen Date: 08/01/16 Last Menstrual Date: 07/24/16 Previous Abnormal Pap Smears?:N Date Time Test Result Flag (u) Normal Range 08/01/16 1319 HPV RNA RFLX GE Negative Negative The high-risk HPV types detected by the assay include: 16, 18, 31, 33, 35, 39, 45, 51, 52, 56, 58, 59, 66, and 68. Signed (signature on file) Greg RichardHORTENCIA hsu (ASCP) 08/02 1453 This Pap test was evaluated with the assistance of the [employer] Test Imaging System. Due to cytologic findings at the turkish rubber microscope, comprehensive manual rescreening by a Rehab Tech may be required. The Pap Smear is a screening test designed to aid in the detection of premalignant and malignant conditions of the uterine cervix. It is not a diagnostic procedure and should not be used as the sole means of detecting cervical cancer. Both false- positive and false- negative reports do occur. Depending on your risk status, a Pap smear should be obtained and evaluated every 1-3 years. END OF REPORT * ML=Testing performed at Main Lab DEPARTMENT OF PATHOLOGY, [address] [place] [address] Eleuterio Weir M.D. Director [facility] # [id number] 5 The high-risk HPV types detected by the assay include: 16, 18, 31, 33, 35, 39, 45, 51, 52, 56, 58, 59, 66, and 68. 6 Desirable <150 Borderline high 150-199 High 200-499 Very High >500 7 Desirable <200 Borderline high 200-239 High >239 8 Low <40 Desirable: 40-60 High: >60 9 Desirable: <100 mg/dL Near Optimal: 100-129 mg/dL Borderline High: 130-159 mg/dL High: 160-189 mg/dL Very High: >189 mg/dL 10 FASTING 10 HOUR 11 SEE RESULT BELOW Name: TAMIKO DRIVER : [address]: Tegan Tejada MD Acct: [id number] Unit: [id number] AGE: 35 Location: [facility] Re10/28/15 SEX: F Status: REG REF SPEC: [id number] SANDRA: 10/28/[address]: Tegan Tejada MD REQ: [id number] RECD: 10/28/15 STATUS: COMP _ SOURCE: VAGINAL SPDESC: ORDERED: Priya,Yeast DNA Procedure Result Reported Site Gardnerella/Yeast: Vaginal DNA Final 01/07/16- 1145 ML Organism 1 POSITIVE RADHA Organism 2 Negative Gardnerella The presence of G. vaginalis, although suggestive, is not diagnostic for bacterial vaginosis. Results should be interpreted in conjuction with other clinical and laboratory data available. Women with vaginal discharge should be evaluated for risk factors of cervicitis and pelvic inflammatory disease, toxic shock syndrome (S.aureus), and if present, evaluated for organisms not included in this assay such as N. gonorrhoeae, C. trachomatis, Mobiluncus, Mycoplasma and/or Prevotella. Mixed infections may occur. The performance of this test on patient specimens collected during or immediately after antimicrobial therapy is unknown. The presence or absence of Radha species, or G. vaginalis cannot be used as a test for therapeutic success or failure. * ML - MAIN LAB ([facility]) . END OF REPORT * ML=Testing performed at Main Lab DEPARTMENT OF PATHOLOGY, [address] [place] [address] Eleuterio Weir M.D. Director [facility] # [id number] 12 GC/Chlamydia Source?: Endocervical Trichomonas Source: Endocervical 13 SEE RESULT BELOW Name: TAMIKO DRIVER : [address]: Tegan Tejada MD Acct: [id number] Unit: [id number] AGE: 34 Location: [facility] Re04/06/15 SEX: F Status: REG REF SPEC: [id number] SANDRA: 04/06/15-[address] [facility] [address]: Tegan Tejada MD REQ: [id number] RECD: 04/06/15 STATUS: COMP _ SOURCE: VAGINAL SPDESC: ORDERED: Priya,Yeast DNA, Trich DNA Procedure Result Verified Site Gardnerella/Yeast: Vaginal DNA Final 04/07/15- 1233 ML Organism 1 Negative Gardnerella Organism 2 POSITIVE RADHA The presence of G. vaginalis, although suggestive, is not diagnostic for bacterial vaginosis. Results should be interpreted in conjuction with other clinical and laboratory data available. Women with vaginal discharge should be evaluated for risk factors of cervicitis and pelvic inflammatory disease, toxic shock syndrome (S.aureus), and if present, evaluated for organisms not included in this assay such as N. gonorrhoeae, C. trachomatis, Mobiluncus, Mycoplasma and/or Prevotella. Mixed infections may occur. The performance of this test on patient specimens collected during or immediately after antimicrobial therapy is unknown. The presence or absence of Radha species, or G. vaginalis cannot be used as a test for therapeutic success or failure. Trichomonas: Vaginal DNA Probe Final 04/07/15- 1233 ML Organism 1 Negative Trichomonas CONTINUED ON NEXT PAGE * ML=Testing performed at Main Lab DEPARTMENT OF PATHOLOGY, [address] [place] [address] Eleuterio Weir M.D. Director [facility] # [id number] Patient: TAMIKO DRIVER [id number] (Continued) Specimen: [id number] Collected: 04/06/15-1157 Received: 04/06/15-1638 (Continued) Procedure Result Verified Site Trichomonas: Vaginal DNA Probe Final (continued) 04/07/15- 1233 The presence or absence of T. vaginalis cannot be used as a test for therapeutic success or failure. * ML - MAIN LAB ([facility]) . END OF REPORT * ML=Testing performed at Main Lab DEPARTMENT OF PATHOLOGY, [address] [place] [address] Eleuterio Weir M.D. Director [facility] # [id number] 14 Test Performed by: [place] [address] Lunchroom Attendant: Ceferino Rios M.D. 15 REFERENCE VALUE 10-60 (a.m. collection) Test Performed by: [place] [address] Lunchroom Attendant: Ceferino Rios M.D. 16 Test Performed by: [place] [address] Lunchroom Attendant: Ceferino Rios M.D. 17 REFERENCE VALUE 25-HYDROXY D TOTAL (D2+D3) Optimum levels in the healthy population are 20-50, patients with bone disease may benefit from higher levels within this range. Test Performed by: [facility] [address] [address] Lunchroom Attendant: Ceferino Rios M.D. 18 Therapeutic target for the treatment of diabetes Mellitus patients is <7% HBA1C, and in selective patients <6.0%.Please refer to [place] [employer] Diabetic care guidelines for further information. 19 Because ethnic data is not always readily available, this report includes an eGFR for both -Americans and non- Americans. The National Kidney Disease Education Program (NKDEP) does not endorse the use of the MDRD equation for patients that are not between the ages of 18 and 70, are , have extremes of body size, muscle mass, or nutritional status, or are non- or non-. According to the National Kidney Foundation, irrespective of diagnosis, the stage of the disease is based on the level of kidney function: Stage Description GFR(mL/min/1.73 m(2)) 1 Kidney damage with normal or decreased GFR 90 2 Kidney damage with mild decrease in GFR 60-89 3 Moderate decrease in GFR 30-59 4 Severe decrease in GFR 15-29 5 Kidney failure <15 (or dialysis) 20 RUN DATE: 09/05/14 [facility] LAB LIVE PAGE 1 RUN TIME: 42[address], [place] [address] Specimen Inquiry Name: TAMIKO DRIVER : [address]: Elia Patel NP Acct: [id number] Unit: [id number] AGE: 34 Location: [facility] Re09/04/14 SEX: F Status: REG REF SPEC: [id number] SANDRA: 09/04/14-[address] [facility] [address]: Elia Patel NP REQ: [id number] RECD: 09/04/14 STATUS: COMP _ S[facility]: [facility]: ORDERED: Priya,Yeast DNA, Trich DNA QUERIES: Medent Number [id number] Procedure Result Verified Site Gardnerella/Yeast: Vaginal DNA Final 09/05/14- 1143 ML Organism 1 Negative Gardnerella Organism 2 POSITIVE RADHA Trichomonas: Vaginal DNA Probe Final 09/05/14- 1143 ML Organism 1 Negative Trichomonas END OF REPORT * ML=Testing performed at Main Lab DEPARTMENT OF PATHOLOGY, [address] [place] [address] Eleuterio Weir M.D. Director [facility] # [id number] 21 FASTING 10 HOUR 22 FASTING 10 HOUR 23 FASTING 10 HOUR 24 RUN DATE: 07/11/14 [facility] LAB LIVE PAGE 1 RUN TIME: [address] [place] [id number] Specimen Inquiry Name: TAMIKO DRIVER : [address]: Tegan Tejada MD Acct: [id number] Unit: [id number] AGE: 34 Location: [facility] Re07/10/14 SEX: F Status: REG REF SPEC: [id number] SANDRA: 07/10/14-[address] [facility] [address]: Tegan Tejada MD REQ: [id number] RECD: 07/10/142776 STATUS: COMP _ SOURCE: VAGINAL SPDESC: ORDERED: Affirm QUERIES: Medent Number [id number] Procedure Result Verified Site Affirm Vaginal DNA Probe Final 07/11/14- 1411 ML Organism 1 Negative Trichomonas Organism 2 Negative Gardnerella Organism 3 POSITIVE RADHA The presence of G. vaginalis, although suggestive, is not diagnostic for bacterial vaginosis. Results should be interpreted in conjunction with other clinical and laboratory data available. Women with vaginal discharge should be evaluated for risk factors of cervicitis and pelvic inflammatory disease, toxic shock syndrome (S.aureus), and if present, evaluated for organisms not included in this assay such as N. gonorrhoeae, C. trachomatis, Mobiluncus, Mycoplasma and/or Prevotella. Mixed infections may occur. The performance of this test on patient specimens collected during or immediately after antimicrobial therapy is unknown. The presence or absence of Radha species, G. vaginalis or T. vaginalis cannot be used as a test for therapeutic success or failure. END OF REPORT * ML=Testing performed at Main Lab DEPARTMENT OF PATHOLOGY, [address] [place] [address] Eleuterio Weir M.D. Director [facility] # [id number] 25 RESULT: Ectocervical/Endocervical 26 The following Other High Risk HPV types were not detected: 31, 33, 35, 39, 45, 51, 52, 56, 58, 59, 66, and 68 Test Performed by: [address] [address] Lunchroom Attendant: Chele Castro III, M.D. 27 RUN DATE: 03/04/14 [facility] LAB LIVE PAGE 1 RUN TIME: [address] [place] [address] Specimen Inquiry Name: TAMIKO DRIVER : [address]: Tegan Tejada MD Acct: [id number] Unit: [id number] AGE: 33 Location: [facility] Re03/03/14 SEX: F Status: REG REF SPEC: [id number] SANDRA: 03/03/14-140 [facility] DR: Tegan Tejada MD REQ: [id number] RECD: 03/03/14 STATUS: COMP _ SOURCE: URINE SPDESC: ORDERED: GC/Phuam RNA QUERIES: Medent Number [id number] Procedure Result Verified Site Chlamydia Trachomatis RNA Final 03/04/14- 1442 ML NEGATIVE for Chlamydia trachomatis rRNA GC (N. gonorrhoeae) RNA Final 03/04/14- 1429 ML NEGATIVE for Neisseria gonorrhoeae rRNA A negative result does not preclude the presence of a C. trachomatis or N. gonorrhoeae infection because results are dependent on adequate specimen collection, absence of inhibitors, and sufficient rRNA to be detected. Test results may be affected by improper specimen collection, improper storage, technical error, or specimen mixup. Limitations of the Procedure: The Aptima Combo 2 Assay is not intended for the evaluation of suspected sexual abuse or for other medico-legal indications. For those patients for whom a false positive result may have adverse psychosocial impact, the [facility] recommends retesting by a method using an alternate technology. Therapeutic failure or success cannot be determined with the Aptima Combo 2 Assay since nucleic acid may persist following appropriate antimicrobial therapy. Results from the Aptima Combo 2 Assay should be interpreted in conjunction with other laboratory and clinical data available to the clinican. CONTINUED ON NEXT PAGE * ML=Testing performed at Main Lab DEPARTMENT OF PATHOLOGY, [facility] [place], [place] [address] Eleuterio Weir M.D. Director [facility] # [id number] RUN DATE: 03/04/14 [facility] LAB LIVE PAGE 2 RUN TIME: [address] [facility] [place], [place] [address] Specimen Inquiry Patient: TAMIKO DRIVER [id number] (Continued) Specimen: [id number] Collected: 03/03/14 Received: 03/03/14 (Continued) Procedure Result Verified Site GC (N. gonorrhoeae) RNA Final (continued) 03/04/14- 9061 Performance characteristics for detecting C. trachomatis and N. gonorrhoeae are derived from high prevalence populations. Positive results in low prevalence populations should be interpreted carefully with the understanding that the likelihood of a false positive may be higher than a true positive. END OF REPORT * ML=Testing performed at Main Lab DEPARTMENT OF PATHOLOGY, [facility] [place] [id number] Eleuterio Weir M.D. Director [facility] # [id number] 28 RUN DATE: 03/04/14 [facility] LAB LIVE PAGE 1 RUN TIME: [address] [place] [address] Specimen Inquiry Name: TAMIKO DRIVER : [address]: Tegan Tejada MD Acct: [id number] Unit: [id number] AGE: 33 Location: [facility] Re03/03/14 SEX: F Status: REG REF SPEC: [id number] SANDRA: 03/03/14-[address] [facility] [address]: Tegan Tejada MD REQ: [id number] RECD: 03/03/14-8926 STATUS: SOUT _ ORDERED: IMAGE ANALYSIS, PAP SM PATH REV, HPV/Thin Prep FINAL DIAGNOSIS Negative for Intraepithelial lesion or Malignancy Reactive cellular changes associated with Inflammation (includes typical repair) COMMENTS: Specimen sent to [facility] in [place], [place] on 03/04/14 by [id number] at 1245. Results will be reported separately. A. Ectocervical/Endocervical Specimen Adequacy: Satisfactory of evaluation Transformation zone component identified Patient Information: HPV: High risk HPV DNA testing regardless of pap results. Actual Specimen Date: 03/03/14 Last Menstrual Date: 02/13/14 Lesion, grossly demonstrate: N Previous Abnormal Pap Smears?:N Signed (signature on file) Gaby Landry MD 1514 This Pap test was evaluated with the assistance of the ThinPrep Test Imaging System. Due to cytologic findings at the turkish rubber microscope, comprehensive manual rescreening by a Rehab Tech may be required. The Pap Smear is a screening test designed to aid in the detection of premalignant and malignant conditions of the uterine cervix. It is not a diagnostic procedure and should not be used as the sole means of detecting cervical cancer. Both false- positive and false- negative reports do occur. Depending on your risk status, a Pap smear shoudl be obtained and evaluated every 1-3 years. END OF REPORT * ML=Testing performed at Main Lab DEPARTMENT OF PATHOLOGY, [facility] [place] [address] Eleuterio Weir M.D. Director [facility] # [id number] 29 RUN DATE: 03/04/14 [facility] LAB LIVE PAGE 1 RUN TIME: [address] [facility] [place], [place] [address] Specimen Inquiry Name: TAMIKO DRIVER : [address]: Tegan Tejada MD Acct: [id number] Unit: [id number] AGE: 33 Location: [facility] Re03/03/14 SEX: F Status: REG REF SPEC: [id number] SANDRA: 03/03/14-[address]: Tegan Tejada MD REQ: [id number] RECD: 03/03/14 STATUS: COMP _ SOURCE: VAGINAL SPDESC: ORDERED: Affirm QUERIES: Medent Number [id number] Procedure Result Verified Site Affirm Vaginal DNA Probe Final 03/04/14- 1329 ML Organism 1 Negative Trichomonas Organism 2 POSITIVE GARDNERELLA Organism 3 POSITIVE RADHA The presence of G. vaginalis, although suggestive, is not diagnostic for bacterial vaginosis. Results should be interpreted in conjunction with other clinical and laboratory data available. Women with vaginal discharge should be evaluated for risk factors of cervicitis and pelvic inflammatory disease, toxic shock syndrome (S.aureus), and if present, evaluated for organisms not included in this assay such as N. gonorrhoeae, C. trachomatis, Mobiluncus, Mycoplasma and/or Prevotella. Mixed infections may occur. The performance of this test on patient specimens collected during or immediately after antimicrobial therapy is unknown. The presence or absence of Radha species, G. vaginalis or T. vaginalis cannot be used as a test for therapeutic success or failure. END OF REPORT * ML=Testing performed at Main Lab DEPARTMENT OF PATHOLOGY, [address] [place] [address] Eleuterio Weir M.D. Director [facility] # [id number] 30 Because ethnic data is not always readily available, this report includes an eGFR for both -Americans and non- Americans. The National Kidney Disease Education Program (NKDEP) does not endorse the use of the MDRD equation for patients that are not between the ages of 18 and 70, are , have extremes of body size, muscle mass, or nutritional status, or are non- or non-. According to the National Kidney Foundation, irrespective of diagnosis, the stage of the disease is based on the level of kidney function: Stage Description GFR(mL/min/1.73 m(2)) 1 Kidney damage with normal or decreased GFR 90 2 Kidney damage with mild decrease in GFR 60-89 3 Moderate decrease in GFR 30-59 4 Severe decrease in GFR 15-29 5 Kidney failure <15 (or dialysis) 31 Reference Range and Interpretation: TnI (ng/mL) Interpretation Less Than 0.03 ng/mL Not supportive of diagnosis of DC 0.03 - 0.50 ng/mL Indeterminate: suggest serial studies if clinically indicated. Greater than 0.5 ng/mL Consistent with diagnosis of DC 32 Therapeutic concentration: <50 ug/mL Toxic concentration: >120 ug/mL 33 Please note: The following may produce a false positive D Dimer test: - Rheumatoid factor greater than 60 IU/ml - Plasma hemoglobin greater than 0.05 gm/dl - Bilirubin greater than 50 mg/dl - Lipids greater than 1000 mg/dl - FDP greater than 20 ug/ml 34 This test detects intact HCG only and is indicated for the early detection of . 35 The urine specimen was tested at the listed cutoffs: Drug class test level (ng/ml) Amphetamines 300 Barbituates 200 Benzodiazepine metabolites 200 Cocaine metabolites 300 Cannabinoids 25 Opiates 200 Pcp 25 This is a screening procedure. Positive results are not confirmed. Specimen was received without chain of custody. Results should be used for medical purposes only. 36 Please note: The following may produce a false positive D Dimer test: - Rheumatoid factor greater than 60 IU/ml - Plasma hemoglobin greater than 0.05 gm/dl - Bilirubin greater than 50 mg/dl - Lipids greater than 1000 mg/dl - FDP greater than 20 ug/ml 37 Therapeutic concentration: <50 ug/mL Toxic concentration: >120 ug/mL 38 Because ethnic data is not always readily available, this report includes an eGFR for both -Americans and non- Americans. The National Kidney Disease Education Program (NKDEP) does not endorse the use of the MDRD equation for patients that are not between the ages of 18 and 70, are , have extremes of body size, muscle mass, or nutritional status, or are non- or non-. According to the National Kidney Foundation, irrespective of diagnosis, the stage of the disease is based on the level of kidney function: Stage Description GFR(mL/min/1.73 m(2)) 1 Kidney damage with normal or decreased GFR 90 2 Kidney damage with mild decrease in GFR 60-89 3 Moderate decrease in GFR 30-59 4 Severe decrease in GFR 15-29 5 Kidney failure <15 (or dialysis) 39 Reference Range and Interpretation: TnI (ng/mL) Interpretation Less Than 0.03 ng/mL Not supportive of diagnosis of DC 0.03 - 0.50 ng/mL Indeterminate: suggest serial studies if clinically indicated. Greater than 0.5 ng/mL Consistent with diagnosis of DC 40 Low risk: <1.0 mg/L Average risk: 1.0-3.0 mg/L High risk: >3.0 mg/L Acute inflammation: >10.0 mg/L 41 It is recognized that currently available assays for the detection of antibodies to HIV-1 and/or HIV-2 may not detect all infected individuals. HIV antibodies may be undetectable in some stages of the infection and in some clinical conditions. The performance of this assay has not been established for populations of infants or children. Assayed by Chemiluminescence Microparticle Immunoassay on the Siemens Advia Centaur CP. Values obtained with different methods or kits cannot be used interchangeably.The diagnostic specificity of the ADVIA Centaur 1/O/2 Enhanced assay in the low risk population was 99.90% (6052/6058) with a 95% confidence interval of 99.78 to 99.96%. 42 Serologic response to B. burgdorferi infection is not detected, but cannot rule out early infection during which low or undetectable antibody levels to B. burgdorferi may be present. If clinically indicated, a new serum specimen should be submitted in 7-14 days. Test Performed by: [place] [address] Lunchroom Attendant: Chele Castro III, M.D. 43 Because ethnic data is not always readily available, this report includes an eGFR for both -Americans and non- Americans. The National Kidney Disease Education Program (NKDEP) does not endorse the use of the MDRD equation for patients that are not between the ages of 18 and 70, are , have extremes of body size, muscle mass, or nutritional status, or are non- or non-. According to the National Kidney Foundation, irrespective of diagnosis, the stage of the disease is based on the level of kidney function: Stage Description GFR(mL/min/1.73 m(2)) 1 Kidney damage with normal or decreased GFR 90 2 Kidney damage with mild decrease in GFR 60-89 3 Moderate decrease in GFR 30-59 4 Severe decrease in GFR 15-29 5 Kidney failure <15 (or dialysis) 44 Reference Range and Interpretation: TnI (ng/mL) Interpretation Less Than 0.03 ng/mL Not supportive of diagnosis of DC 0.03 - 0.50 ng/mL Indeterminate: suggest serial studies if clinically indicated. Greater than 0.5 ng/mL Consistent with diagnosis of DC 45 Please note: The following may produce a false positive D Dimer test: - Rheumatoid factor greater than 60 IU/ml - Plasma hemoglobin greater than 0.05 gm/dl - Bilirubin greater than 50 mg/dl - Lipids greater than 1000 mg/dl - FDP greater than 20 ug/ml 46 Because ethnic data is not always readily available, this report includes an eGFR for both -Americans and non- Americans. The National Kidney Disease Education Program (NKDEP) does not endorse the use of the MDRD equation for patients that are not between the ages of 18 and 70, are , have extremes of body size, muscle mass, or nutritional status, or are non- or non-. According to the National Kidney Foundation, irrespective of diagnosis, the stage of the disease is based on the level of kidney function: Stage Description GFR(mL/min/1.73 m(2)) 1 Kidney damage with normal or decreased GFR 90 2 Kidney damage with mild decrease in GFR 60-89 3 Moderate decrease in GFR 30-59 4 Severe decrease in GFR 15-29 5 Kidney failure <15 (or dialysis) 47 FASTING 10 HOUR 48 FASTING 10 HOUR 49 HDL Interpretation: Undesirable: High Risk: Less than 40 mg/dL Desirable: Low Risk: Greater than 60 mg/dL 50 LDL Interpretation: Low Risk Optimal Level: LDL Less than 100 mg/dL Near or Above Optimal: LDL 100-129 mg/dL Borderline High Risk: LDL 130-159 mg/dL High Risk: LDL 160-189 mg/dL Very High Risk: LDL Greater than 189 mg/dL 51 ---- RUN DATE: 05/03/12 [facility] NMI LIVE PAGE 1 RUN TIME: 1409 Specimen Inquiry RUN USER: INTERFACE -- Name: TAMIKO DRIVER Status: REG REF Re04/30/12 Age/Sex: 31/F Unit#: [id number] Location: [facility]. : [birth year] -- Specimen: [id number] SOUT Spec Date:04/30/12- Dr: Elia Mae ed, MD Spec Type: SURGICAL P Received:05/02/12-1251 Copies to: Don galicia MD SPECIMEN LEFT AXILLARY THICKENING HISTORY CLINICAL INFORMATION: Pain for many years. GROSS DESCRIPTION The specimen is received in formalin labelled Tamiko Driver, Left Axillary Thickening, and consists of two irregular rodriguez-weston soft tissue fragments measuring 0.5 x 0.3 x 0.2 cm. Submitted entirely, one cassette. DIAGNOSIS Left axillary thickening: A. Epidermis with no significant pathologic changes. B. Dermis with few apocrine glands and very mild chronic inflammatory infiltrate. Signed Electronically by: KIM WOLFE 05/03/12 1409 -- -- DEPARTMENT OF PATHOLOGY, [address] [place] [address] [facility] Permit #[id number] Eleuterio Weir M.D. Director Kim Wolfe M.D. Horticulture/Floriculture Teacher Dir kane -- 52 FINAL INTERPRETATION: No HIV antibody is detected. . This information has been disclosed to you from confidential records which are protected by [place] State law. State law prohibits you from making further disclosure of this information without the specific written consent of the person to whom it pertains, or as otherwise permitted by law. Any unauthorized further disclosure in violation of state law may result in a fine or long term sentence or both. General authorization for the release of medical or other information is not, except in limited circumstances set forth in Part 63, Title 10, of [facility], sufficient authorization for further disclosure. Disclosure of confidential HIV information that occurs as the result of a general authorization for the release of medical or other information will be in violation of the state law and may result in a fine or a long term sentence. . 53 Anion gap measurement may be of limited value in the presence of any alkalosis, especially in a combined acid base disorder. . 54 A metabolite of Naproxen, O-desmethylnaproxen, has been shown to interfere with the Jendrassik-Slatington method for measuring total bilirubin. Samples from patients who have taken Naproxen have shown spurious elevation in total bilirubin levels. 55 Because ethnic data is not always readily available, this report includes an eGFR for both -Americans and non- Americans. The National Kidney Disease Education Program (NKDEP) does not endorse the use of the MDRD equation for patients that are not between the ages of 18 and 70, are , have extremes of body size, muscle mass, or nutritional status, or are non- or non-. According to the National Kidney Foundation, irrespective of diagnosis, the stage of the disease is based on the level of kidney function: Stage Description GFR(mL/min/1.73 m(2)) 1 Kidney damage with normal or decreased GFR 90 2 Kidney damage with mild decrease in GFR 60-89 3 Moderate decrease in GFR 30-59 4 Severe decrease in GFR 15-29 5 Kidney failure <15 (or dialysis) 56 CHOLESTEROL INTERPRETATION: Desirable: Less than 200 MG/DL Borderline-High Risk: 200-239 MG/DL High-Risk: 240 MG/DL and over 57 HDL INTERPRETATION: Undesirable: High Risk: Less than 40 MG/DL Desirable: Low Risk: Greater than 60 MG/DL 58 LDL INTERPRETATION: Low Risk Optimal Level: LDL Less than 100 MG/DL Near or Above Optimal: LDL 100-129 MG/DL Borderline High Risk: LDL 130-159 MG/DL High Risk: LDL 160-189 MG/DL Very High Risk: LDL Greater than 189 MG/DL Procedures Date CPT Code Description Status 03/02/2018 10055 Carpal Tunnel Release Completed 03/02/201862110 Carpal Tunnel Release Completed 08/25/2017 16991 Carpal Tunnel Release Completed 08/25/201715336 Carpal Tunnel Release Completed 08/25/2017 Injection, Carpal Tunnel Completed 08/25/2017 Injection, Carpal Tunnel Completed 05/31/2017 Injection, Carpal Tunnel Completed 03/08/2017 Injection, Carpal Tunnel Completed 06/06/2016 Inject/Drain Joint/Bursa Major W/O US Completed 10/21/2014 71580 Holter Monitor Review (24 hr)dr review & interp only Completed 08/21/2012 66453 EKG Tracing & Interpretation Completed Encounters Type Date Location Provider CPT E/M Dx Office Visit 02/21/2018 [facility] Fransisca [place], 85092 G56.02 1:45p Of C.M.ARadha Gomez Office Visit 02/08/2018 [facility] Dex Golden, [address] R42 2:00p - Chance Gomez Office Visit 09/06/2017 [facility] Tegan Tejada M.D. 73300 N94.12 2:40p - Chance K59.00 Z23 Office Visit 08/17/2017 3:30p [facility] Fransisca [place] 14127 G56.03 Of Jennifer Gomez Office Visit 02/13/2017 9:30a [facility] Fransisca Wheeler 35471 G56.01 Of Jennifer Gomez G56.21 Office Visit 02/01/2017 2:40p [facility] Medicine Tegan Tejada 91263 G56.01 - Chance Gomez Office Visit 11/29/2016 11:50a [facility] Medicine Tegan Tejada 33254 F32.9 - Chance Gomez F41.9 Office Visit 10/18/2016 10:50a [facility] Tegan Tejada M.D. 05293 F32.9 - Chance F41.9 Z79.899 Office Visit 10/03/2016 8:30a [facility] Tegan Tejada M.D. 68731 F32.9 - Chance F41.9 E87.6 Office Visit 08/01/2016 11:10a [facility] Medicine Tegan Tejada 42423 Z00.00 - Chance Gomez F32.9 Z91.19 Z12.4 Z23 Office Visit 07/25/2016 10:45a [facility] Alpa Young M.D. 92340 M25.562 C.M.ARadha M17.12 M22.2x2 Office Visit 06/06/2016 10:00a [facility] Alpa Young M.D. 99965 M25.562 C.M.ARadha M17.12 M22.2x2 Office Visit 05/16/2016 9:50a [facility] Internal Lou Tejada M.D. 22485 F32.9 - Percival H81.13 M25.562 Z91.19 Office Visit 01/11/2016 8:30a [facility] Internal Lou Tejada M.D. 26334 F32.9 - Percival G47.00 M25.562 Office Visit 12/28/2015 10:50a [facility] Medicine Tegan Tejada M.D. 41422 F32.9 - Percival R42 Office Visit 12/01/2015 9:50a [facility] Medicine Tegan Tejada M.D. 67268 F32.9 - Percival G47.00 B37.3 Office Visit 10/28/2015 8:30a [facility] Medicine Tegan Tejada M.D. 93977 F32.9 - Percival G47.00 N76.0 Office Visit 10/07/2015 2:00p [facility] Internal Lou Tejada M.D. 34064 F32.9 - Percival G47.00 N91.1 Office Visit 07/30/2015 10:10a [facility] Internal Lou Tejada M.D. 25134 M54.5 - Percival N94.1 R42 R10.30 Z23 Office Visit 04/30/2015 10:00a [facility] [address] 780.52 Services Of [facility] Office Visit 04/29/2015 10:10a [facility] Internal Medicine Jacek Tejada [address]383 311 Quintin Gomez 782.0 724.2 719.47 Office Visit 04/27/2015 9:00a [facility] [place] [address] [address] [place] 386.11 Office Visit 04/06/2015 10:50a [facility] Medicine Tegan Tejada M.D. 82181 623.5 - [place] 780.52 724.2 788.41 Office Visit 01/26/2015 9:00a [facility] [place] [address] 386.11 724.2 Office Visit 11/26/2014 10:00a [facility] [place] [address] 780.4 780.52 Office Visit 10/27/2014 2:30p [facility] [place] [address] [address] [place] 458.9 Office Visit 10/14/2014 9:45a [facility] [address] 780.52 Services [facility] Office Visit 10/14/2014 2:00p [facility] Internal Medicine - Elia Patel, CHARGE AUTHORIZER 42225 458.9 [place] Office Visit 09/11/2014 9:30a [facility] Internal Medicine - Elia Patel, CHARGE AUTHORIZER 97539 616.10 [place] 780.4 564.00 Office Visit 09/04/2014 11:00a [facility] Medicine - Elia Patel, CHARGE AUTHORIZER 98994 616.9 [place] 616.10 Office Visit 07/10/2014 10:30a [facility] Medicine Tegan Tejada M.D. 52417 623.5 - [place] 780.79 780.52 V04.81 Office Visit 03/03/2014 1:10p [facility] Medicine Tegan Tejada 50157 V72.31 - Quintin Gomez V76.2 623.5 Office Visit 01/29/2014 2:10p [facility] Medicine Tegan Tejada 31432 311 - Quintin Gomez Office Visit 01/02/2014 3:30p [facility] Medicine Tegan Tejada 81303 300.01 - Quintin Gomez 311 Office Visit 12/23/2013 3:10p [facility] Internal Medicine - Tegan Tejada M.D. 82697 311 [place] 722.93 Office Visit 12/12/2013 1:40p [facility] Internal Medicine - Aliya Key M.D. 13714 311 [place] 780.79 276.8 275.2 Office Visit 12/04/2013 2:10p [facility] Medicine Tegan Tejada 18955 722.93 - Quintin Gomez 311 780.79 Office Visit 11/07/2013 1:50p [facility] Medicine Tegan Tejada 28754 729.90 - Quintin Gomez 722.93 780.4 Office Visit 09/10/2013 4:20p [facility] Internal Don Dhillon 41497 722.93 Medicine - Quintin Gmoez 785.6 Office Visit 07/31/2013 3:00p [facility] Internal Medicine Don Dhillon 91510 724.2 - [place] M.D. 386.10 625.9 V70.0 272.2 V04.81 Office Visit 06/26/2013 4:20p [facility] Internal Medicine Don Dhillon, 26454 272.2 - [place] Sixto.DRadha 724.9 786.50 Office Visit 01/15/2013 4:20p [facility] Internal Donguera Dhillon, 45166 300.00 Medicine - [place] Sixto.DRadha 780.4 Office Visit 12/25/2012 4:20p [facility] Internal Don Dhillno, 75370 386.11 Medicine - [place] Sixto.DRadha 724.2 300.00 369.75 Office Visit 12/05/2012 1:50p [facility] Medicine Tegan Tejada M.D. 59239 780.4 - [place] 789.00 780.79 Office Visit 08/21/2012 2:40p [facility] Internal Medicine Don Dhillon, 65418 724.2 - [place] M.DRadha 784.0 785.1 Office Visit 07/25/2012 2:20p [facility] Medicine Don Dhillon, 63335 724.2 - [place] Sixto.DRadha 784.0 Office Visit 04/11/2012 2:40p [facility] Internal Don Dhillon, 00521 201.54 Medicine - Quintin Gomez Office Visit 03/28/2012 11:40a [facility] Internal Don Dhillon, 21139 518.89 Medicine - Quintin Gomez 201.54 780.4 V06.4 V03.82 Office Visit 08/22/2011 4:00p DO Not Use Clinical Material Handler AT Don Dhillon M.D. 44452 724.2 [place] 518.89 Office Visit 07/20/2011 9:20a DO Not Use Clinical Material Handler AT Don Dhillon M.D. 70835 724.2 [place] 486 626.2 Office Visit 05/31/2011 11:20a DO Not Use Clinical Material Handler AT Don Dhillon M.D. 45397 626.2 [facility] [phone] V72.62 Plan of Care Future Appointment(s):11/28/2018 11:10 am - Tegan Tejada M.D. at [facility] - [place]05/01/2018 - Tegan Tejada M.D.R30.0 DysuriaComments:I do not see any evidence of infection, I would like to evaluate your pain with an [id number] Encounter for ovzkspalukjhR81.89 Other specified depressive episodesComments:I refilled your prescription for the antidepressant , please call the office when you run out of refillsFollow up: physical in 2 tyjzaxF71.89 Other symptoms and signs involving the genitourinary systemComments:we discussed avoiding using wipes as the skin is slightly nudentqwjQ48.30 Lower abdominal pain, unspecifiedNew Xrays:US Pelvic
[2018-08-27 12:15] VITALS: BP 105/73
--- NOTE | 2018-08-27 13:50 | UC ---
General HPI - HPI Summary HPI Summary: Pt. is a 38 y.o female who presents to the ER with complaints of depression. Pt.'s brother is presents and is helping interpret for pt. Pt. states she has been on an antidepressant for about 1.5 years. She is unsure of the names but is rx by her family doctor. Pt. notes before starting mediation she was feeling very depressed and was not eating or sleeping. She then started on an antidepressant and got a job and has been doing much better until the last 2 weeks. Pt. c/o fatigue, decreased sleep and appetite and decreased activity. Pt. denies suicidal or homicidal ideations. She lives with numerous family members and states she has a good support system. Pt. did schedule an apt. with her PCP for tomorrow but presents to [facility] today because she missed work. She has never seen a therapist or psychiatrist and has never been hospitalized for MH before. Symptoms are moderate in severity. No current modifying factors. She otherwise denies recent illness, cough, URI sxs, abd. pain, V/D. - History of Current Complaint Chief Complaint: [facility]Psych Stated Complaint: TIRED ANXIETY Time Seen by Provider: 08/27/18 12:30 Hx Obtained From: Patient, Family/Inter Com Servicer Hx Last Menstrual Period: 08/06/18 Pain Intensity: 0 - Allergy/Home Medications Allergies/Adverse Reactions: Allergies Allergy/AdvReac Type Severity Reaction Status Date / Time Adhesive Tape Allergy Unknown Verified 08/27/18 12:15 Reaction Details citalopram Allergy Unknown Verified 08/27/18 12:15 Reaction Details tramadol Allergy Unknown Verified 08/27/18 12:15 Reaction Details trazodone Allergy Unknown Verified 08/27/18 12:15 Reaction Details Bandage adhesive Allergy Unknown Uncoded 08/27/18 12:15 Reaction Details PMH/Surg Hx/FS Hx/Imm Hx Previously Healthy: Yes - Surgical History Surgical History: Yes Surgery Procedure, Year, and Place: Tubal ligation, 14 yrs ago. [facility] carpal tunnel release 2017 - Family History Known Family History: Positive: Unknown - unable to obtain. pt is a poor historian. language barrier. - Social History Occupation: Employed Full-time Lives: With Family Alcohol Use: Rare Alcohol Amount: glass of wine once a week Substance Use Type: None Smoking Status (MU): Never Smoked Tobacco Have You Smoked in the Last Year: No Review of Systems Constitutional: Negative Skin: Negative Eyes: Negative ENT: Negative Respiratory: Negative Cardiovascular: Negative Gastrointestinal: Negative Musculoskeletal: Arthralgia Neurological: Negative Psychological: Depressed Is Patient Immunocompromised?: No All Other Systems Reviewed And Are Negative: Yes Physical Exam Triage Information Reviewed: Yes Appearance: Well-Appearing - Pt. sitting in chair in NAD. Brother present. Vital Signs: Initial Vital Signs Temp 98.4 F 08/27/18 12:07 Pulse 83 08/27/18 12:07 Resp 18 08/27/18 12:07 BP 105/73 08/27/18 12:07 Pulse Ox 100 08/27/18 12:07 Eye Exam: Normal Eyes: Positive: Conjunctiva Clear ENT: Positive: Pharynx normal, TMs normal Neck: Positive: Supple, Nontender Respiratory Exam: Normal Respiratory: Positive: Lungs clear, Normal breath sounds Cardiovascular Exam: Normal Cardiovascular: Positive: RRR Musculoskeletal Exam: Normal Neurological Exam: Normal Psychological Exam: Normal Skin Exam: Normal Course/Dx - Course Course Of Treatment: Pt. presenting for evaluation of worsening depression. She denies SI or HI and lives with family and has a strong support system. Pt. hoping for medication to help with her sxs. Explained to pt. we cannot rx antidepressants from [facility]. Pt. requesting work excuse. Advised pt. to see her PCP tomorrrow as scheduled to discuss treatment and to get set up with out p.t therapy and possible psychiatrist. Advised to go to ER for increase sxs, concern for safety at home or SI or HI. Pt. and brother understand and agree with plan. - Differential Dx - Multi-Symptom Provider Diagnoses: Depression Discharge - Sign-Out/Discharge Documenting (check all that apply): Patient Departure All imaging exams completed and their final reports reviewed: No Studies - Discharge Plan Condition: Good Disposition: HOME Patient Education Materials: Depression (ED) Forms: *Work Release Referrals: Tegan Tejada MD [Primary Care Provider] - Additional Instructions: Follow up with your PCP tomorrow as scheduled Continue home medications as directed Go to the ER immediately or call 911 if you feel unsafe at home or feel suicidal - Billing Disposition and Condition Condition: GOOD Disposition: Home
== END 2018-08-27 13:40 | disposition home or self-care (01) ==
LOC: UCEAST 11:57
DX: F32.9 Major depressive disorder, single episode, unspecified (principal); Z88.5 Allergy status to narcotic agent; Z88.8 Allergy status to other drugs, medicaments and biological substances; Z91.048 Other nonmedicinal substance allergy status
CPT/HCPCS: 99211; G0463

== ENCOUNTER 2020-01-13 14:13 | Emergency (ER) | payer OTHER ==
--- OUTSIDE RECORDS SUMMARY | 2020-01-13 14:19 | XMS REPORT | Continuity of Care Document ---
:1980 External Reference #:[id number] Author Name Romy Morales NP (transmitted by agent of provider Alma Rosa Monson) Address [address], [place] [address] Care Team Providers Name Role Phone Tegan Tejada MD - Internal Care Team Information Java Lead [phone] Medicine Alpa Young MD - Adult Care Team Information Java Lead [phone] Reconstructive Orthopaedic Surgery Problems Active Problems Provider Date Anxiety state Don Dhillon M.D. Onset: 12/25/2012 Disorder of lumbar disc Don Dhillon M.D. Onset: 09/10/2013 Depressive disorder Onset: Psychophysiologic insomnia Tegan Tejada M.D. Onset: 12/01/2015 Localized, primary osteoarthritis Alpa Young M.D. Onset: 06/06/2016 Derangement of knee Alpa Young M.D. Onset: 06/06/2016 Disorder of lipid metabolism Tegan Tejada M.D. Onset: 08/01/2016 Note: low HDL Disorder of patellofemoral joint Onset: Note: OA Deep pain on intercourse Tegan Tejada M.D. Onset: 09/06/2017 Note: chronic issue Social History Type Date Description Comments Sex Unknown Tobacco Use Start: Unknown Never Smoked Cigarettes ETOH Use Denies alcohol use Recreational Drug Use Denies Drug Use Tobacco Use Start: Unknown Patient has never smoked Smoking Status Reviewed: 12/31/19 Patient has never smoked Exercise Type/Frequency Exercises regularly back stretches .some walking X 30 min periodically Allergies, Adverse Reactions, Alerts Active Allergies Reaction Severity Comments Date Cymbalta abdominal pain 12/12/2013 Bandage Adhesive 12/12/2013 Tramadol makes patient lethargic 01/02/2014 Trazodone Eye balls were burning Severe 01/29/2014 Inactive Allergies NKDA 05/31/2011 NKDA 09/10/2013 Medications Active Medications SIG Qnty Indications Ordering Date Provider Fluticasone 2 intranasal puffs 16gm J06.9 [place] 12/31/2019 Propionate once daily Jason Nixon 50mcg/Act Suspension Ambien 1 by mouth every 30tabs G47.00 [place] 12/31/2019 5mg Tablets day as needed Jason Nixon before sleep Wrist Brace/Suede as needed 1units G56.01 Tegan Tejada, 02/01/2017 Finish/Right/Medium M.DRadha Misc Escitalopram Oxalate -take one tablet 90tabs F32.9 [place] 10/03/2016 by mouth every day Jason Nixon 20mg Tablets Acetaminophen 2 tabs qam Unknown 500mg History Medications Ambien once at night 30tabs F51.04 Tegan Tejada, 07/29/2019 - 5mg Sixto.DRadha 12/31/2019 Tablets Medications Administered in Office Medication SIG Qnty Indications Ordering Provider Date Influenza Virus Vaccine, Unknown 08/15/2019 Pandemic Formulation Injection Depomedrol 40MG Fransisca Barnett M.D. 05/31/2017 Injection Depomedrol 40MG Fransisca Barnett M.D. 05/31/2017 Injection Depomedrol 40MG Fransisca Barnett M.D. 03/08/2017 Injection Depomedrol 40MG Alpa Young M.D. 06/06/2016 Injection Td(Adult),Unspecified Unknown 12/03/2010 Injection Immunizations CPT Code Status Date Vaccine Reaction Lot # [id number] Given 08/23/2018 Influenza Virus Vaccine, No immediate reaction [id number] Quadrivalent, Split, noted. Preservative Free 97014 Given 09/06/2017 Tdap - [id number] Tetanus/Diptheria/Acellul ar Pertussis 29821 Given 09/06/2017 Influenza Virus Vaccine, [id number] Quadrivalent, Split, Preservative Free 45954 Given 08/01/2016 Influ Virus Vaccine, [id number] Quadrivalent, Split Virus, [place] [address] Given 07/30/2015 Influenza Virus Vaccine, [id number] Quadrivalent, Split, Preservative Free [id number] Given 07/10/2014 Fluvirin Im 3Yrs And Older 65299 Given 07/10/2014 Influenza Virus Vaccine, Quadrivalent, Split, Preservative Free 47335 Given 07/10/2014 Flu Vaccine Split Virus [id number] Preservative Free For Indiv 3Yr Older 61018 Given 07/31/2013 Flu Vaccine Split Virus [id number] Preservative Free For Indiv 3Yr Older 01818 Given 09/27/2012 Hepatitis A Vaccine Adult Dosage 93748 Given 05/31/2012 Hepatitis B Vaccine Adult Dosage 40577 Given 05/31/2012 Hepatitis B Vaccine Adult [id number] Dosage 46153 Given 03/29/2012 Hepatitis B Vaccine Adult [id number] Dosage 27976 Given 03/29/2012 Hepatitis A Vaccine Adult [id number] Dosage 28505 Given 03/28/2012 Pneumonia Vaccine [id number] 38223 Given 03/28/2012 Measles Mumps And Rubella [id number] MMR 86313 Given 12/03/2010 Hepatitis B Vaccine Adult Dosage 58578 Given 12/03/2010 Measles Mumps And Rubella MMR Vital Signs Date Vital Result Comment 12/31/2019 12:57pm Height 62 inches 5'2" Weight 144.00 lb Heart Rate 79 /min BP Systolic Sitting 102 mmHg BP Diastolic Sitting 75 mmHg Body Temperature 98.2 F O2 % BldC Oximetry 99 % BMI (Body Mass Index) 26.3 kg/m2 12/25/2019 4:37pm Height 62 inches 5'2" Weight 146.12 lb Heart Rate 83 /min BP Systolic Sitting 109 mmHg BP Diastolic Sitting 71 mmHg BMI (Body Mass Index) 26.7 kg/m2 Results Test Acquired Date Facility Test Result H/L Range Note Influenza A & B 12/31/2019 [facility] Flu AB (SEE NOTE) [address] [place] [address] [phone] Influenza A Molecular Negative Negative Influenza B Molecular Negative Negative 2 1 Suboptimal collection technique may reduce sensitivity of test. Refer to the [facility] Test Catalog for collection information: [email or web address] As with all diagnostic procedures, the laboratory results obtained should be used in conjunction with other clinical information available to the physician, including confirmation by another method, as applicable. 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 insomnia Ccmob F41.9 Anxiety disorder, unspecified Assessments Date Code Description Provider 12/31/2019 J06.9 Acute upper respiratory infection, Bagum Karimullah Gulshad , S[employer]IOR [employer]PORATE STRATEGY MANAGER unspecified 12/31/2019 F32.9 Major depressive disorder, single Bagum Karimullah Gulshad , SENIOR CORPORATE STRATEGY MANAGER episode, unspecified 12/31/2019 G47.00 Insomnia, unspecified Bagum Karimullah Gulshad, SENIOR CORPORATE STRATEGY MANAGER 12/25/2019 M25.562 Pain in left knee Dex Golden M.D. 07/29/2019 F51.04 Psychophysiologic insomnia Tegan Tejada M.D. 07/29/2019 F41.9 Anxiety disorder, unspecified Tegan Tejada M.D. Plan of Treatment Future Appointment(s):01/20/2020 3:00 pm - Alpa Young M.D. at [facility]12/25/2019 - Dex Golden M.D.M25.562 Pain in left kneeComments:Fall last month with persistent L nee pain, swelling. X-ray and ortho eval advisedReferral:Alpa Young MD, Surgery,Ortho Adult Recon Functional Status Description No Information Available Mental Status Description No Information Available Referrals Refer to Dr Reason for Referral Status Appt Date Alpa Young MD Fall at work 12/01/19 with persistent L knee Sent patellar and popliteal pain, knee swelling [address] [facility] [place] [address] [phone] Armida Rocha, EZIO Sent 08/28/2019 [address] [place] [address] [phone]
--- NOTE | 2020-01-13 14:21 | UC ---
Telehealth HPI HPI Summary: 39-year-old female presents to urgent care with a friend who provided patient history due to Gambian not being her primary language. Reporting one-week history of intermittent headaches for the past week with low-grade fevers and chills that occur usually around 2:00 PM in the afternoon. Max temperature of 99.8 F. Symptoms associated with a mild runny nose and intermittent "chest burning". He acetaminophen for headache fevers with relief. Last dose was at 12:00 PM. No recent travel within the last 2 weeks and no known contact with persons isolated for or diagnosed with COVID-19. Denies ear pain, sore throat, cough, shortness of breath, abdominal pain, nausea, vomiting, diarrhea. Telehealth PMH Previously Healthy: Yes Endocrine/Hematology History: Denies: Hx Diabetes, Hx Sickle Cell Disease Cardiovascular History: Denies: Hx Hypertension, Hx Pacemaker/ICD, Other Cardiovascular Problems/ Disorders Respiratory History: Denies: Hx Asthma, Other Respiratory Problems/Disorders GI History: Denies: Other GI Disorders History: Denies: Hx Renal Disease, Other Problems/Disorders Musculoskeletal History: Reports: Hx Arthritis - Osteoarthritis, Left knee, fingers of both hands, Hx Tendonitis - bilateral carpal tunnel, right wrist repaired, Other Musculoskeletal History - Lumbar disc disorder Sensory History: Denies: Hx Contacts or Glasses, Hx Hearing Aid Opthamlomology History: Denies: Hx Contacts or Glasses Neurological History: Reports: Hx Headaches - mild headaches on occasion Psychiatric History: Reports: Hx Anxiety - on medications, panic attacks, hasn' t had one in a few years, Hx Depression - on medication, Hx Panic Disorder Denies: Hx Eating Disorder, Hx of Violent Episodes Against Others - Surgical History Surgery Procedure, Year, and Place: Tubal ligation, 14 yrs ago. [facility] carpal tunnel release 2017 Hx Anesthesia Reactions: No - Immunization History Date of Tetanus Vaccine: PT STATES UNSURE Date of Influenza Vaccine: NONE - Family History Known Family History: Positive: Unknown - unable to obtain. pt is a poor historian. language barrier. - Social History Occupation: Employed Full-time Lives: With Family Alcohol Use: Rare Alcohol Amount: glass of wine once a week Substance Use Type: Reports: None Smoking Status (MU): Never Smoked Tobacco Have You Smoked in the Last Year: No Telehealth ROS All Other Systems Reviewed And Are Negative: Yes Positive: Fever - Low grade, Chills Negative: Photophobia, Blurred Vision, Diplopia Positive: Nasal Discharge. Negative: Sore Throat, Ear Ache Positive: Chest Pain - Intermittent burning. Negative: Palpitations Negative: Shortness Of Breath, Cough Negative: Abdominal Pain, Vomiting, Diarrhea, Nausea Genitourinary: Negative Musculoskeletal: Negative Skin: Negative Positive: [facility] Physical Exam: Physical exam limited due to use of telemedicine out of concern for COVID-19. Patient was directly observed by Linda Cordero RN who report patient was in no acute distress. [facility] Course/Dx Assessment/Plan: 39-year-old female presents to urgent care with a friend who provided patient history due to [place]ian not being her primary language. Reporting one-week history of intermittent headaches for the past week with low-grade fevers and chills that occur usually around 2:00 PM in the afternoon. Max temperature of 99.8 F. Symptoms associated with a mild runny nose and intermittent "chest burning". He acetaminophen for headache fevers with relief. Last dose was at 12:00 PM. No recent travel within the last 2 weeks and no known contact with persons isolated for or diagnosed with COVID-19. Denies ear pain, sore throat, cough, shortness of breath, abdominal pain, nausea, vomiting, diarrhea. Due to concern for COVID-19 telemedicine was utilized to conduct the patient's history and assessment therefore physical examination was limited. Patient was directly observed by the RN and noted to be in no acute distress. Rapid strep and rapid flu tests were negative. Reviewed results with the patient. We discussed that based on her history I had a very low suspicion for COVID-19 infection and that her symptoms are likely from a viral syndrome and recommending symptomatic treatment this time. She is to follow-up with her primary care provider in 3-5 days if symptoms persist. Anticipatory guidance and warning symptoms were reviewed with the patient. Verbalizes understanding and agrees with plan of care. Provider Diagnoses: Viral syndrome [facility] Disposition Provider Recommendation for Treatment: Urgent Care Telehealth Visit: Patient Consented Verbally to Telehealth Visit Telehealth Patient Statement: The patient should understand that they are communicating with their provider via a secure communication platform and that all the same privacy and confidentiality rules apply. They will also be responsible for copayments or coinsurances that apply to any Telehealth visit. Patient Identifiers: 2 Patient Identifiers Verified for Telehealth Visit Telehealth Visit Start Time: 14:15 Telehealth Visit End Time: 15:15 Telehealth Provider Attestation: The above services were appropriate to provide in a Telehealth setting.
[2020-01-13 14:46] LABS: Influenza A Molecular Negative (Negative); Influenza B Molecular Negative (Negative)
== END 2020-01-13 15:15 | disposition home or self-care (01) ==
LOC: UCEAST 14:13
DX: B34.9 Viral infection, unspecified (principal); R07.89 Other chest pain; F41.0 Panic disorder [episodic paroxysmal anxiety]; F32.9 Major depressive disorder, single episode, unspecified
CPT/HCPCS: 99211; G0463

== ENCOUNTER 2022-06-18 22:46 | Observation (INO) ==
[2022-06-19] MEDS ORDERED: Ondansetron 4 mg VIAL 2 MG/ML 2 ml VIAL IV ONE (00:08)
[2022-06-19] MEDS: NS 0.9% 1000 ml BAG 1,000 ML IV ONE ×2 (00:21→01:20)
[2022-06-19 00:30] LABS: Hematocrit 29 % (35-47); Hemoglobin 9.7 g/dL (12.0-16.0); Mean Corpuscular HGB Conc 33 g/dL (31-36); Mean Corpuscular Hemoglobin 29 pg (27-31); Mean Corpuscular Volume 87 fL (80-97); Mean Platelet Volume 8.8 fL (7.4-10.4); Platelet Count 130 10^3/uL (150-450); Red Blood Count 3.36 10^6 /uL (3.70-4.87); Red Cell Distribution Width 15 % (10-15); White Blood Count 14.6 10^3/uL (3.5-10.8)
[2022-06-19 00:41] LABS: Activated Partial Thrombo Time 26.6 seconds (26.0-38.0); INR 0.98 (0.89-1.11)
[2022-06-19 01:10] LABS: ABS Basophils 0.2 10^3/ul (0-0.2); ABS Eosinophils 0.1 10^3/ul (0-0.6); ABS Lymphocytes 2.3 10^3/ul (1.0-4.8); ABS Monocytes 0.6 10^3/ul (0-0.8); ABS Neutrophils 11.5 10^3/ul (1.5-7.7); Eosinophil % 0.4 %; Lymphocyte % 15.6 %
[2022-06-19] MEDS ORDERED: NS 0.9% 1000 ml BAG 2,000 ML IV ONE (01:23)
[2022-06-19] MEDS ORDERED: Metoclopramide 5 MG/ML VIAL (10 mg) IV SLOW PU ONE (01:26)
[2022-06-19 02:10] LABS: Albumin 3.9 g/dL (3.2-5.2); Calcium 8.7 mg/dL (8.6-10.3); Potassium 3.5 mmol/L (3.5-5.0); Total Bilirubin 0.7 mg/dL (0.2-1.0)
[2022-06-19 02:16] LABS: Albumin/Globulin Ratio 1.8 (1-3); Globulin 2.2 g/dL (2-4); Total Protein 6.1 g/dL (6.4-8.9); eGFR CKD-EPI 115.6 (>60)
[2022-06-19] MEDS ORDERED: Iohexol 350 (CONTRAST) 500 ML MDV IV ONE (02:23)
[2022-06-19 02:29] LABS: Urine Appearance Clear; Urine Bilirubin Negative (Negative); Urine Blood Trace (Lysed) (Negative); Urine Color Yellow; Urine Glucose Negative (Negative); Urine Ketones Negative (Negative)
[2022-06-19 02:30] LABS: Urine Nitrite Negative (Negative); Urine Protein Negative (Negative); Urine Urobilinogen 0.2 (Negative) (Negative)
[2022-06-19 02:49] LABS: Urine Bacteria Absent (Absent); Urine Red Blood Cell Trace(0-2/hpf) (Absent); Urine Squamous Epithelial Cell Present (Absent); Urine White Blood Cell 1+(6-10/hpf) (Absent)
[2022-06-19] MEDS ORDERED: cefTRIAXone 1 gm/50 mL D5W 1 GM/50 ML BAG IV ONE (04:33)
[2022-06-19] MEDS ORDERED: NS 0.9% 1000 ml BAG 1,000 ML IV SCH (04:45)
[2022-06-19] MEDS ORDERED: HYDROcodone/ACETAMIN 5/325 mg TAB PO PRN (05:24)
[2022-06-19] MEDS ORDERED: Ondansetron 4 mg VIAL 2 MG/ML 2 ml VIAL IV PRN (05:26)
[2022-06-19] MEDS ORDERED: D5LR 1000 ml BAG 1,000 ML IV SCH (06:00)
[2022-06-19] MEDS ORDERED: Enoxaparin 40 MG/0.4 ML SYR SUBCUT SCH (06:00)
[2022-06-19 13:31] VITALS: BP 96/73
[2022-06-20] MEDS ORDERED: cefTRIAXone 1 gm/50 mL D5W 1 GM/50 ML BAG IV SCH (06:00)
== END 2022-06-19 13:30 | disposition home or self-care (01) ==
LOC: ED 22:46 → EDHOLD 22:46 → SUATTDRO 06-19 05:24 → EDHOLD 06-19 13:30
PROVIDERS: ADMIT Internal Medicine; ATTEND Internal Medicine Hematology & Oncology

== ENCOUNTER 2022-11-18 10:51 | Inpatient (IN) ==
[2022-11-18 11:31] LABS: Calcium 8.1 mg/dL (8.6-10.3); Magnesium 1.9 mg/dL (1.9-2.7); Potassium 3.2 mmol/L (3.5-5.0)
[2022-11-18] MEDS ORDERED: Ondansetron 4 mg VIAL 2 MG/ML 2 ml VIAL ONE (11:32)
[2022-11-18] MEDS ORDERED: Dexamethasone IV 4 MG/ML VIAL 1 ml VIAL ONE (11:32)
[2022-11-18 11:37] LABS: Creatinine, Serum 0.48 mg/dL (0.51-0.95); eGFR CKD-EPI 119.7 (>60)
[2022-11-18] MEDS ORDERED: LORazepam 2 mg VIAL 1 ml ONE (11:43)
[2022-11-18] MEDS ORDERED: Lorazepam PYXIS KEY ONE (11:43)
[2022-11-18] MEDS ORDERED: NS 0.9% 1000 ml BAG 1,000 ML IV SCH (12:15)
[2022-11-18] MEDS ORDERED: Lorazepam PYXIS KEY PRN (12:28)
[2022-11-18] MEDS ORDERED: LORazepam 2 mg VIAL 1 ml IV PUSH PRN (12:28)
[2022-11-18] MEDS ORDERED: Polyethylene Glycol 3350 17 GM PACKET PO PRN (12:52)
[2022-11-18] MEDS ORDERED: Scopolamine 1 mg/72hr PATCH TRANSDERM SCH (13:00)
[2022-11-18] MEDS: KCL 20 MEQ/100 ML IVPREMIX 20 MEQ/100 ML BAG IV SCH ×2 (15:39→18:18)
[2022-11-18] MEDS: Ondansetron 4 mg VIAL 2 MG/ML 2 ml VIAL IV PRN (20:07)
[2022-11-18] MEDS: Enoxaparin 60 MG/0.6 ML SYR SUBCUT SCH (20:07)
[2022-11-18] MEDS ORDERED: Lactated Ringers 1000 ml BAG 1,000 ML IV ONE (20:39)
[2022-11-18] MEDS ORDERED: Lactated Ringers 1000 ml BAG 500 ML IV ONE (20:39)
[2022-11-19] MEDS: NS 0.9% 1000 ml BAG 1,000 ML IV SCH ×3 (02:46→18:44)
[2022-11-19] MEDS: Ondansetron 4 mg VIAL 2 MG/ML 2 ml VIAL IV PRN ×4 (06:31→22:45)
[2022-11-19 06:39] LABS: ABS Eosinophils 0.2 10^3/ul (0-0.6); ABS Lymphocytes 1.8 10^3/ul (1.0-4.8); ABS Monocytes 0.2 10^3/ul (0-0.8); Eosinophil % 2.3 %; Hematocrit 30 % (35-47); Hemoglobin 9.8 g/dL (12.0-16.0); Lymphocyte % 17.7 %; Mean Corpuscular HGB Conc 33 g/dL (31-36); Mean Corpuscular Hemoglobin 27 pg (27-31); Mean Corpuscular Volume 82 fL (80-97); Mean Platelet Volume 11.1 fL (7.4-10.4); Platelet Count 109 10^3/uL (150-450); Red Blood Count 3.65 10^6 /uL (3.70-4.87); Red Cell Distribution Width 16 % (10-15); White Blood Count 10.3 10^3/uL (3.5-10.8)
[2022-11-19 07:09] LABS: Albumin 3.1 g/dL (3.2-5.2); Albumin/Globulin Ratio 1.9 (1-3); Calcium 7.9 mg/dL (8.6-10.3); Creatinine, Serum 0.5 mg/dL (0.51-0.95); Globulin 1.6 g/dL (2-4); Magnesium 1.7 mg/dL (1.9-2.7); Potassium 3.4 mmol/L (3.5-5.0); Total Bilirubin 0.7 mg/dL (0.2-1.0); Total Protein 4.7 g/dL (6.4-8.9); eGFR CKD-EPI 118.5 (>60)
[2022-11-19] MEDS: Enoxaparin 60 MG/0.6 ML SYR SUBCUT SCH ×2 (08:51→21:23)
[2022-11-19] MEDS ORDERED: Influenza vaccine *QUAD* *2022-23* 0.5 ML SYRINGE IM ONE (09:00)
[2022-11-19] MEDS ORDERED: Magnesium Sulf 4 GM/100 ML IV 4,000 MG/100 ML BAG IVPB ONE (10:49)
[2022-11-19] MEDS: Dexamethasone IV 4 MG/ML VIAL 1 ml VIAL IV SLOW PU PRN (15:00)
[2022-11-19] MEDS ORDERED: Lactated Ringers 1000 ml BAG 1,000 ML IV ONE (20:12)
[2022-11-20] MEDS: NS 0.9% 1000 ml BAG 1,000 ML IV SCH ×4 (03:40→23:19)
[2022-11-20 05:38] LABS: Hematocrit 31 % (35-47); Hemoglobin 10.3 g/dL (12.0-16.0); Mean Corpuscular HGB Conc 34 g/dL (31-36); Mean Corpuscular Hemoglobin 28 pg (27-31); Mean Corpuscular Volume 82 fL (80-97); Platelet Count 102 10^3/uL (150-450); Red Blood Count 3.73 10^6 /uL (3.70-4.87); Red Cell Distribution Width 15 % (10-15); White Blood Count 7.7 10^3/uL (3.5-10.8)
[2022-11-20 05:58] LABS: ABS Eosinophils 0.1 10^3/ul (0-0.6); ABS Lymphocytes 1.7 10^3/ul (1.0-4.8); ABS Monocytes 0.4 10^3/ul (0-0.8); ABS Neutrophils 5.6 10^3/ul (1.5-7.7); Eosinophil % 1.1 %; Lymphocyte % 21.4 %
[2022-11-20 06:17] LABS: Albumin 3.2 g/dL (3.2-5.2); Albumin/Globulin Ratio 2.1 (1-3); Creatinine, Serum 0.57 mg/dL (0.51-0.95); Globulin 1.5 g/dL (2-4); Magnesium 1.8 mg/dL (1.9-2.7); Potassium 3.8 mmol/L (3.5-5.0); Total Bilirubin 0.5 mg/dL (0.2-1.0); Total Protein 4.7 g/dL (6.4-8.9); eGFR CKD-EPI 114.8 (>60)
[2022-11-20] MEDS: Dexamethasone IV 4 MG/ML VIAL 1 ml VIAL IV SLOW PU PRN (08:29)
[2022-11-20] MEDS: Enoxaparin 60 MG/0.6 ML SYR SUBCUT SCH ×2 (08:33→21:42)
[2022-11-20] MEDS ORDERED: Magnesium Sulf 4 GM/100 ML IV 4,000 MG/100 ML BAG IVPB ONE (10:30)
[2022-11-20] MEDS: Ondansetron 4 mg VIAL 2 MG/ML 2 ml VIAL IV PRN ×2 (16:25→21:43)
[2022-11-21 06:19] LABS: Hematocrit 29 % (35-47); Hemoglobin 9.5 g/dL (12.0-16.0); Mean Corpuscular HGB Conc 33 g/dL (31-36); Mean Corpuscular Hemoglobin 27 pg (27-31); Mean Corpuscular Volume 81 fL (80-97); Mean Platelet Volume 8.4 fL (7.4-10.4); Platelet Count 118 10^3/uL (150-450); Red Blood Count 3.57 10^6 /uL (3.70-4.87); Red Cell Distribution Width 15 % (10-15); White Blood Count 7.6 10^3/uL (3.5-10.8)
[2022-11-21 06:26] LABS: ABS Eosinophils 0.1 10^3/ul (0-0.6); ABS Lymphocytes 2.4 10^3/ul (1.0-4.8); ABS Monocytes 0.6 10^3/ul (0-0.8); ABS Neutrophils 4.4 10^3/ul (1.5-7.7); Eosinophil % 1.9 %; Lymphocyte % 31.4 %; Nucleated Red Blood Cells % 0.2
[2022-11-21 06:58] LABS: Albumin 3.2 g/dL (3.2-5.2); Albumin/Globulin Ratio 2.1 (1-3); Creatinine, Serum 0.53 mg/dL (0.51-0.95); Globulin 1.5 g/dL (2-4); Magnesium 1.9 mg/dL (1.9-2.7); Potassium 3.2 mmol/L (3.5-5.0); Total Bilirubin 0.5 mg/dL (0.2-1.0); Total Protein 4.7 g/dL (6.4-8.9); eGFR CKD-EPI 116.9 (>60)
[2022-11-21] MEDS: Enoxaparin 60 MG/0.6 ML SYR SUBCUT SCH (08:28)
[2022-11-21 11:59] VITALS: BP 89/60
== END 2022-11-21 11:30 | disposition home or self-care (01) | DRG 249 ==
LOC: CHOA 10:51 → MEDTELE 12:08
PROVIDERS: ADMIT Internal Medicine Medical Oncology; ATTEND Internal Medicine Medical Oncology

== ENCOUNTER 2022-11-24 15:31 | Inpatient (IN) ==
[2022-11-24] MEDS ORDERED: Vancomycin 1,500 MG in NS 0.9% 250 ml 250 ML IVPB ONE (17:36)
[2022-11-24 20:37] LABS: Hematocrit 31 % (35-47); Mean Corpuscular HGB Conc 32 g/dL (31-36); Mean Corpuscular Hemoglobin 26 pg (27-31); Mean Corpuscular Volume 82 fL (80-97); Mean Platelet Volume 8.3 fL (7.4-10.4); Platelet Count 172 10^3/uL (150-450); Red Blood Count 3.81 10^6 /uL (3.70-4.87); Red Cell Distribution Width 16 % (10-15)
[2022-11-24 20:56] LABS: Albumin 3.5 g/dL (3.2-5.2); Albumin/Globulin Ratio 1.8 (1-3); C Reactive Protein 7.58 mg/L (<8.01); Calcium 8.3 mg/dL (8.6-10.3); Creatinine, Serum 0.46 mg/dL (0.51-0.95); Globulin 1.9 g/dL (2-4); Potassium 3.8 mmol/L (3.5-5.0); Total Bilirubin 0.4 mg/dL (0.2-1.0); Total Protein 5.4 g/dL (6.4-8.9); eGFR CKD-EPI 120.9 (>60)
[2022-11-24 21:20] LABS: ABS Eosinophils 0.1 10^3/ul (0-0.6); ABS Lymphocytes 2.2 10^3/ul (1.0-4.8); ABS Monocytes 0.6 10^3/ul (0-0.8); Eosinophil % 1.3 %; Lymphocyte % 21.7 %; Nucleated Red Blood Cells % 0.1
[2022-11-24 21:26] LABS: Anisocytosis 1+; Schistocytes 1+
[2022-11-24 21:29] LABS: Polychromasia 1+
[2022-11-24] MEDS ORDERED: Ondansetron ODT 4 mg TAB 4 MG TAB PO PRN (22:44)
[2022-11-24] MEDS ORDERED: Enoxaparin 60 MG/0.6 ML SYR SUBCUT ONE (22:46)
[2022-11-24] MEDS ORDERED: Vancomycin per Pharmacy 1 EA NOTE FOLLOW UP SCH (23:00)
[2022-11-24] MEDS: Cefepime 1 GM in Dextrose 1 GM/50 ML BAG IV SCH (23:09)
[2022-11-25] MEDS: metroNIDAZOLE IV 500 MG/100ML 500 MG/100 ML BAG IVPB SCH ×3 (00:37→20:19)
[2022-11-25] MEDS ORDERED: NS 0.9% 1000 ml BAG 1,000 ML IV ONE (03:43)
[2022-11-25] MEDS: Vancomycin 1000 MG in NS 0.9% 250 ML IVPB SCH ×3 (07:19→20:12)
[2022-11-25 07:38] LABS: Hematocrit 30 % (35-47); Hemoglobin 9.6 g/dL (12.0-16.0); Mean Corpuscular HGB Conc 32 g/dL (31-36); Mean Corpuscular Hemoglobin 27 pg (27-31); Mean Corpuscular Volume 83 fL (80-97); Mean Platelet Volume 7.4 fL (7.4-10.4); Platelet Count 148 10^3/uL (150-450); Red Blood Count 3.58 10^6 /uL (3.70-4.87); Red Cell Distribution Width 16 % (10-15); White Blood Count 6.9 10^3/uL (3.5-10.8)
[2022-11-25 08:24] LABS: Albumin 3.2 g/dL (3.2-5.2); Albumin/Globulin Ratio 2.1 (1-3); Calcium 8.4 mg/dL (8.6-10.3); Creatinine, Serum 0.53 mg/dL (0.51-0.95); Globulin 1.5 g/dL (2-4); Potassium 4.1 mmol/L (3.5-5.0); Total Bilirubin 0.4 mg/dL (0.2-1.0); Total Protein 4.7 g/dL (6.4-8.9); eGFR CKD-EPI 116.9 (>60)
[2022-11-25] MEDS ORDERED: Lactated Ringers 1000 ml BAG 1,000 ML IV SCH (09:00)
[2022-11-25 09:17] LABS: ABS Eosinophils 0.1 10^3/ul (0-0.6); ABS Lymphocytes 1.6 10^3/ul (1.0-4.8); ABS Monocytes 0.5 10^3/ul (0-0.8); ABS Neutrophils 4.7 10^3/ul (1.5-7.7); Anisocytosis 1+; Eosinophil % 1.9 %; Lymphocyte % 23.5 %; Polychromasia 1+
[2022-11-25] MEDS ORDERED: Midazolam 2 mg/2 ml VIAL 1 mg/ml 2 ml VIAL (2 mg) ONE (09:41)
[2022-11-25] MEDS ORDERED: fentaNYL 100 mcg/2 ml 50 MCG/ML VIAL ONE (09:41)
[2022-11-25] MEDS ORDERED: Dexamethasone IV 4 MG/ML VIAL 1 ml VIAL ONE (09:41)
[2022-11-25] MEDS ORDERED: Lidocaine 2% PF 5 ML VIAL ONE (09:41)
[2022-11-25] MEDS ORDERED: Ondansetron 4 mg VIAL 2 MG/ML 2 ml VIAL ONE (09:41)
[2022-11-25] MEDS ORDERED: Propofol 10 MG/ML 20 ML BTL ONE ×2 (09:41→09:49)
[2022-11-25] MEDS ORDERED: Lidocaine 1% VIAL 10 MG/ML VIAL 30 ML ONE ×2 (09:49→10:22)
[2022-11-25] MEDS: Cefepime 1 GM in Dextrose 1 GM/50 ML BAG IV SCH ×2 (13:14→13:24)
[2022-11-25] MEDS ORDERED: Polyethylene Glycol 3350 17 GM PACKET PO PRN (15:53)
[2022-11-25] MEDS: Lactated Ringers 1000 ml BAG 1,000 ML IV SCH (16:36)
[2022-11-25] MEDS: Polyethylene Glycol 3350 17 GM PACKET PO SCH (20:11)
[2022-11-26] MEDS: Lactated Ringers 1000 ml BAG 1,000 ML IV SCH ×4 (00:43→07:41)
[2022-11-26] MEDS: Cefepime 1 GM in Dextrose 1 GM/50 ML BAG IV SCH ×2 (00:47→13:20)
[2022-11-26] MEDS: metroNIDAZOLE IV 500 MG/100ML 500 MG/100 ML BAG IVPB SCH ×3 (01:53→16:14)
[2022-11-26] MEDS: Vancomycin 1000 MG in NS 0.9% 250 ML IVPB SCH ×3 (04:53→21:05)
[2022-11-26 06:20] LABS: Hematocrit 28 % (35-47); Hemoglobin 9.3 g/dL (12.0-16.0); Mean Corpuscular HGB Conc 33 g/dL (31-36); Mean Corpuscular Hemoglobin 27 pg (27-31); Mean Corpuscular Volume 82 fL (80-97); Mean Platelet Volume 8.3 fL (7.4-10.4); Platelet Count 145 10^3/uL (150-450); Red Blood Count 3.45 10^6 /uL (3.70-4.87); Red Cell Distribution Width 16 % (10-15); White Blood Count 5.4 10^3/uL (3.5-10.8)
[2022-11-26 06:41] LABS: C Reactive Protein 6.64 mg/L (<8.01); Calcium 8.3 mg/dL (8.6-10.3); Creatinine, Serum 0.51 mg/dL (0.51-0.95); Magnesium 1.8 mg/dL (1.9-2.7); Potassium 3.7 mmol/L (3.5-5.0)
[2022-11-26 06:57] LABS: RBC Morphology Normal (Normal)
[2022-11-26 06:59] LABS: ABS Eosinophils 0.1 10^3/ul (0-0.6); ABS Lymphocytes 1.3 10^3/ul (1.0-4.8); ABS Monocytes 0.3 10^3/ul (0-0.8); ABS Neutrophils 3.7 10^3/ul (1.5-7.7); Anisocytosis 1+; Eosinophil % 1.8 %; Lymphocyte % 24.2 %
[2022-11-26] MEDS ORDERED: Magnesium Sulfate 2 gm BAG 2 GM/50 ML BAG IVPB ONE (07:11)
[2022-11-26] MEDS ORDERED: Potassium Chlor 20 meq TAB.ER PO ONE (07:11)
[2022-11-26] MEDS: Polyethylene Glycol 3350 17 GM PACKET PO SCH ×2 (08:26→21:05)
[2022-11-26] MEDS ORDERED: Vancomycin Trough Check NOTE FOLLOW UP ONE (12:00)
[2022-11-26 12:57] LABS: Creatinine, Serum 0.48 mg/dL (0.51-0.95); Vancomycin Trough 14.9 mcg/mL; eGFR CKD-EPI 119.7 (>60)
[2022-11-26] MEDS: Magnesium Hydroxide LIQ 30 ML UDC PO PRN (15:33)
[2022-11-26] MEDS ORDERED: Lactated Ringers 1000 ml BAG 500 ML IV ONE ×2 (19:58→21:34)
[2022-11-26] MEDS ORDERED: Enoxaparin 60 MG/0.6 ML SYR SUBCUT SCH (21:00)
[2022-11-27] MEDS: Cefepime 1 GM in Dextrose 1 GM/50 ML BAG IV SCH (00:15)
[2022-11-27] MEDS: metroNIDAZOLE IV 500 MG/100ML 500 MG/100 ML BAG IVPB SCH ×2 (01:04→07:23)
[2022-11-27] MEDS: Vancomycin 1000 MG in NS 0.9% 250 ML IVPB SCH ×2 (05:18→11:48)
[2022-11-27 06:56] LABS: Hematocrit 31 % (35-47); Hemoglobin 10.1 g/dL (12.0-16.0); Mean Corpuscular HGB Conc 32 g/dL (31-36); Mean Corpuscular Hemoglobin 27 pg (27-31); Mean Corpuscular Volume 83 fL (80-97); Mean Platelet Volume 7.7 fL (7.4-10.4); Platelet Count 145 10^3/uL (150-450); Red Blood Count 3.76 10^6 /uL (3.70-4.87); Red Cell Distribution Width 16 % (10-15)
[2022-11-27 07:07] LABS: Calcium 8.6 mg/dL (8.6-10.3); Creatinine, Serum 0.51 mg/dL (0.51-0.95); Potassium 3.9 mmol/L (3.5-5.0)
[2022-11-27] MEDS: Polyethylene Glycol 3350 17 GM PACKET PO SCH ×2 (07:22→20:47)
[2022-11-27] MEDS: Magnesium Hydroxide LIQ 30 ML UDC PO PRN (07:22)
[2022-11-27 07:35] LABS: ABS Basophils 0.1 10^3/ul (0-0.2); ABS Eosinophils 0.1 10^3/ul (0-0.6); ABS Lymphocytes 1.3 10^3/ul (1.0-4.8); ABS Monocytes 0.3 10^3/ul (0-0.8); ABS Neutrophils 3.3 10^3/ul (1.5-7.7); Eosinophil % 1.7 %; Lymphocyte % 26.6 %; Nucleated Red Blood Cells % 0.1
[2022-11-27] MEDS: cefTRIAXone 1 gm/50 mL D5W 1 GM/50 ML BAG IV SCH (11:01)
[2022-11-27] MEDS: Enoxaparin 60 MG/0.6 ML SYR SUBCUT SCH (16:38)
[2022-11-28] MEDS: Enoxaparin 60 MG/0.6 ML SYR SUBCUT SCH (04:37)
[2022-11-28 06:20] LABS: Hematocrit 33 % (35-47); Hemoglobin 10.6 g/dL (12.0-16.0); Mean Corpuscular HGB Conc 32 g/dL (31-36); Mean Corpuscular Hemoglobin 27 pg (27-31); Mean Corpuscular Volume 82 fL (80-97); Mean Platelet Volume 7.6 fL (7.4-10.4); Platelet Count 153 10^3/uL (150-450); Red Blood Count 4.01 10^6 /uL (3.70-4.87); Red Cell Distribution Width 16 % (10-15); White Blood Count 5.1 10^3/uL (3.5-10.8)
[2022-11-28 06:43] LABS: Calcium 8.9 mg/dL (8.6-10.3); Creatinine, Serum 0.58 mg/dL (0.51-0.95); eGFR CKD-EPI 114.4 (>60)
[2022-11-28 06:48] LABS: ABS Basophils 0.1 10^3/ul (0-0.2); ABS Eosinophils 0.1 10^3/ul (0-0.6); ABS Lymphocytes 1.7 10^3/ul (1.0-4.8); ABS Monocytes 0.3 10^3/ul (0-0.8); Eosinophil % 1.4 %; Lymphocyte % 32.9 %; Nucleated Red Blood Cells % 0.1
[2022-11-28] MEDS: Polyethylene Glycol 3350 17 GM PACKET PO SCH (09:52)
[2022-11-28] MEDS: cefTRIAXone 1 gm/50 mL D5W 1 GM/50 ML BAG IV SCH (09:52)
[2022-11-28 10:55] VITALS: BP 93/61
[2022-11-28] MEDS ORDERED: Vancomycin Trough Check NOTE FOLLOW UP ONE (12:00)
== END 2022-11-28 12:00 | disposition home or self-care (01) | DRG 721 ==
LOC: ED 15:31 → EDHOLD 21:42 → SUATTDRO 21:42 → EDHOLD 11-25 07:26 → MED 11-25 13:03
PROVIDERS: ADMIT Internal Medicine; ATTEND Internal Medicine

== ENCOUNTER 2024-01-09 19:48 | Observation (INO) ==
[2024-01-09] MEDS: Ondansetron 4 mg VIAL 2 MG/ML 2 ml VIAL IV ONE (20:47)
[2024-01-09] MEDS: Pantoprazole VIAL 40 MG VIAL IV ONE (20:54)
[2024-01-09 21:14] LABS: ABS Eosinophils 0.2 10^3/uL (0.0-0.5); ABS Lymphocytes 1.8 10^3/uL (1.0-4.8); ABS Monocytes 0.5 10^3/uL (0.0-0.9); ABS Neutrophils 8.4 10^3/uL (1.5-7.6); ABS Nucleated RBC 0.03 10^3/ul; Eosinophil % 1.6 %; Hematocrit 42.5 % (35-45); Hemoglobin 14.5 g/dL (11.5-14.3); Lymphocyte % 16.6 %; Mean Corpuscular Hemoglobin 28.7 pg (27-33); Mean Corpuscular Hgb Conc 34.1 g/dL (31-36); Mean Corpuscular Volume 84.4 fL (80-97); Mean Platelet Volume 9.3 fL (7.5-11.2); Nucleated Red Blood Cells % 0.3 %/100WBC (0.0-0.8); Platelet Count 200 10^3/uL (150-450); Red Blood Count 5.04 10^6/uL (3.63-4.92); Red Cell Distribution Width 13.6 % (12-17); White Blood Count 10.9 10^3/uL (3.8-11.8)
[2024-01-09] MEDS: NS 0.9% 1000 ml BAG 1,000 ML IV ONE (21:34)
[2024-01-09 21:45] LABS: ALT 12 U/L (7-52); AST 20 U/L (13-39); Albumin 4.6 g/dL (3.2-5.2); Albumin/Globulin Ratio 1.8 (1-3); Alkaline Phosphatase 74 U/L (35-149); Anion Gap 8 mmol/L (2-16); Blood Urea Nitrogen 14 mg/dL (6-24); C Reactive Protein < 1.00 mg/L (<8.01); CO2 Carbon Dioxide 24 mmol/L (22-32); Calcium 9.4 mg/dL (8.6-10.3); Chloride 105 mmol/L (101-111); Creatinine, Serum 0.62 mg/dL (0.51-0.95); Globulin 2.5 g/dL (2-4); Glucose 124 mg/dL (70-100); Lipase 24 U/L (11.0-82.0); Potassium 3.4 mmol/L (3.5-5.0); Sodium 137 mmol/L (135-145); Total Bilirubin 0.8 mg/dL (0.2-1.0); Total Protein 7.1 g/dL (6.4-8.9); eGFR CKD-EPI 111.8 (>60)
[2024-01-09] MEDS: Prochlorperazine 5 mg/ml 2 ml VIAL (10 mg) IV ONE (22:17)
[2024-01-09] MEDS: Iohexol 350 (CONTRAST) 500 ML MDV IV ONE (22:50)
[2024-01-09] MEDS: KCL 20 MEQ/100 ML IVPREMIX 20 MEQ/100 ML BAG IV ONE (23:39)
[2024-01-10 00:29] LABS: Urine Appearance Clear; Urine Bacteria Absent /HPF (Absent); Urine Bilirubin Negative (Negative); Urine Blood Negative (Negative); Urine Color Light-Yellow; Urine Glucose Negative (Negative); Urine Ketones 1+ (Negative); Urine Nitrite Negative (Negative); Urine Protein Negative (Negative); Urine Red Blood Cell Absent /HPF (0-Trace); Urine Squamous Epithelial Cell Present /HPF (Absent); Urine Urobilinogen Negative (Negative); Urine White Blood Cell Trace(0-5/hpf) /HPF (0-Trace); Urine pH 5.5 (5.0-8.0)
[2024-01-10] MEDS: NS 0.9% 1000 ml BAG 1,000 ML IV ONE ×2 (03:07→05:05)
[2024-01-10 05:20] LABS: ABS Lymphocytes 1.1 10^3/uL (1.0-4.8); ABS Monocytes 0.3 10^3/uL (0.0-0.9); ABS Neutrophils 3.4 10^3/uL (1.5-7.6); Hematocrit 32.8 % (35-45); Hemoglobin 11.1 g/dL (11.5-14.3); Lymphocyte % 22.9 %; Mean Corpuscular Hemoglobin 28.5 pg (27-33); Mean Corpuscular Hgb Conc 33.9 g/dL (31-36); Mean Corpuscular Volume 84.2 fL (80-97); Mean Platelet Volume 9.2 fL (7.5-11.2); Nucleated Red Blood Cells % 0.1 %/100WBC (0.0-0.8); Platelet Count 153 10^3/uL (150-450); Red Cell Distribution Width 13.4 % (12-17); White Blood Count 4.8 10^3/uL (3.8-11.8)
[2024-01-10] MEDS: KCL 20 MEQ/100 ML IVPREMIX 20 MEQ/100 ML BAG IV ONE (09:38)
[2024-01-10] MEDS: Lactated Ringers 1000 ml BAG 1,000 ML IV ONE (10:18)
[2024-01-10] MEDS ORDERED: Ondansetron 4 mg VIAL 2 MG/ML 2 ml VIAL IV PRN (11:03)
[2024-01-10 13:23] LABS: ABS Eosinophils 0.1 10^3/uL (0.0-0.5); ABS Lymphocytes 1.2 10^3/uL (1.0-4.8); ABS Monocytes 0.2 10^3/uL (0.0-0.9); ABS Neutrophils 1.8 10^3/uL (1.5-7.6); ABS Nucleated RBC 0.01 10^3/ul; Eosinophil % 2.5 %; Hematocrit 32.5 % (35-45); Hemoglobin 10.9 g/dL (11.5-14.3); Lymphocyte % 36.5 %; Mean Corpuscular Hemoglobin 28.4 pg (27-33); Mean Corpuscular Hgb Conc 33.6 g/dL (31-36); Mean Corpuscular Volume 84.6 fL (80-97); Mean Platelet Volume 9.2 fL (7.5-11.2); Nucleated Red Blood Cells % 0.2 %/100WBC (0.0-0.8); Platelet Count 147 10^3/uL (150-450); Red Blood Count 3.85 10^6/uL (3.63-4.92); Red Cell Distribution Width 13.7 % (12-17); White Blood Count 3.2 10^3/uL (3.8-11.8)
[2024-01-10] MEDS: Pantoprazole VIAL 40 MG VIAL IV SCH (13:28)
[2024-01-10] MEDS: Lactated Ringers 1000 ml BAG 1,000 ML IV SCH (13:30)
[2024-01-10 14:09] LABS: Calcium 7.9 mg/dL (8.6-10.3); Creatinine, Serum 0.53 mg/dL (0.51-0.95); Potassium 3.5 mmol/L (3.5-5.0); eGFR CKD-EPI 116.2 (>60)
[2024-01-10 14:24] LABS: Ferritin 17.5 ng/mL (11-307)
[2024-01-11] MEDS: Lactated Ringers 1000 ml BAG 1,000 ML IV SCH (05:49)
[2024-01-11 06:28] LABS: Albumin 3.3 g/dL (3.2-5.2); Albumin/Globulin Ratio 2.1 (1-3); Calcium 8.2 mg/dL (8.6-10.3); Creatinine, Serum 0.54 mg/dL (0.51-0.95); Globulin 1.6 g/dL (2-4); Potassium 3.5 mmol/L (3.5-5.0); Total Bilirubin 0.8 mg/dL (0.2-1.0); Total Protein 4.9 g/dL (6.4-8.9); eGFR CKD-EPI 115.6 (>60)
[2024-01-11 06:50] LABS: Hematocrit 30.9 % (35-45); Hemoglobin 10.5 g/dL (11.5-14.3); Mean Corpuscular Hemoglobin 28.6 pg (27-33); Mean Corpuscular Hgb Conc 33.8 g/dL (31-36); Mean Corpuscular Volume 84.6 fL (80-97); Mean Platelet Volume 9.7 fL (7.5-11.2); Platelet Count 130 10^3/uL (150-450); Red Blood Count 3.66 10^6/uL (3.63-4.92); Red Cell Distribution Width 13.4 % (12-17); White Blood Count 2.6 10^3/uL (3.8-11.8)
[2024-01-11 07:44] LABS: Magnesium 1.6 mg/dL (1.9-2.7)
[2024-01-11 07:49] LABS: ABS Eosinophils 0.1 10^3/uL (0.0-0.5); ABS Lymphocytes 1.3 10^3/uL (1.0-4.8); ABS Monocytes 0.1 10^3/uL (0.0-0.9); Eosinophil % 4.9 %; Lymphocyte % 50.8 %; Nucleated Red Blood Cells % 0.1 %/100WBC (0.0-0.8)
[2024-01-11] MEDS: KCL 20 MEQ/100 ML IVPREMIX 20 MEQ/100 ML BAG IV ONE (08:32)
[2024-01-11] MEDS: Magnesium Sulf 4 GM/100 ML IV 4,000 MG/100 ML BAG IVPB ONE (09:03)
[2024-01-11] MEDS: Acetaminophen IV 1 GM/100ML 1,000 MG/100 ML BAG IV ONE (14:51)
[2024-01-11 15:01] LABS: Hematocrit 35.6 % (35-45); Hemoglobin 11.8 g/dL (11.5-14.3)
[2024-01-11] MEDS ORDERED: Midazolam 10 mg/10 ml VIAL 1 mg/ml 10 ml VIAL (10 mg) ONE (15:26)
[2024-01-11] MEDS ORDERED: fentaNYL 100 mcg/2 ml 50 MCG/ML VIAL ONE (15:26)
[2024-01-12] MEDS: Lactated Ringers 1000 ml BAG 1,000 ML IV SCH (02:53)
[2024-01-12 08:01] LABS: ABS Eosinophils 0.2 10^3/uL (0.0-0.5); ABS Lymphocytes 1.3 10^3/uL (1.0-4.8); ABS Monocytes 0.2 10^3/uL (0.0-0.9); ABS Neutrophils 2.2 10^3/uL (1.5-7.6); ABS Nucleated RBC 0.01 10^3/ul; Eosinophil % 5.4 %; Hematocrit 33.6 % (35-45); Hemoglobin 11.3 g/dL (11.5-14.3); Lymphocyte % 33.4 %; Mean Corpuscular Hemoglobin 28.3 pg (27-33); Mean Corpuscular Hgb Conc 33.6 g/dL (31-36); Mean Corpuscular Volume 84.2 fL (80-97); Mean Platelet Volume 8.8 fL (7.5-11.2); Nucleated Red Blood Cells % 0.1 %/100WBC (0.0-0.8); Platelet Count 144 10^3/uL (150-450); Red Blood Count 3.99 10^6/uL (3.63-4.92); Red Cell Distribution Width 13.2 % (12-17); White Blood Count 3.9 10^3/uL (3.8-11.8)
[2024-01-12 08:40] LABS: Calcium 8.4 mg/dL (8.6-10.3); Creatinine, Serum 0.58 mg/dL (0.51-0.95); Magnesium 1.9 mg/dL (1.9-2.7); Potassium 3.6 mmol/L (3.5-5.0); eGFR CKD-EPI 113.7 (>60)
[2024-01-12] MEDS: Ferric Gluconate IV 250 MG in NS 0.9% 250 ml 200 ML IVPB ONE (12:02)
[2024-01-12 13:37] VITALS: BP 95/64
== END 2024-01-12 15:00 | disposition home or self-care (01) ==
LOC: ED 19:48 → EDHOLD 19:48 → SUATTDRO 01-10 08:49 → MEDTELE 01-10 10:34
PROVIDERS: ADMIT Hospitalist; ATTEND Internal Medicine